=== PATIENT | male | born 1980 | race Caucasian/White ===

== ENCOUNTER 2016-09-28 17:12 | Inpatient (IN) | payer BC ==
[2016-09-28] MEDS ORDERED: HYDROmorphone 2 MG/ML 1 ML SYRINGE IM STA ×2 (17:43→19:16)
--- NOTE | 2016-09-28 17:57 | ED ---
Lower Extremity Injury HPI - General Source: patient Mode of arrival: wheelchair Limitations: no limitations - History of Present Illness Associated Symptoms: ambulatory <Yehuda Escoto - Last Filed: 09/28/16 20:11> <Eliazar Martin - Last Filed: 09/28/16 22:04> - General Chief Complaint: Extremity Injury, Lower Stated Complaint: POSS SCIATIC NERVE, LEFT LEG PAIN Time Seen by Provider: 09/28/16 17:21 - History of Present Illness Initial Comments: Patient is a 36-year-old male, patient of Dr. Medeiros in the outpatient setting presented to the emergency department with complaints of left lower back pain with radiating shooting pain down his left posterior leg to his left calf. Patient currently rates his pain 10 on a 10. No relieving or exacerbating factors. Patient states he was treated for sciatica in early July with pain medication and steroids. Patient states the pain never really went away and over the last 4 days has increased to the point where Motrin and hydrocodone is not working. Patient states he finished his steroids just prior to . Patient denies trauma, fever, weight loss, history of cancer, diabetes or other immunocompromised diseases, IV drug abuse, or recent infection. Patient denies urinary incontinence or fecal incontinence. Patient denies saddle anesthesia. Patient denies any other symptoms. (Yehuda Escoto) - Related Data Home Medications Medication Instructions Recorded Confirmed Omeprazole 1 tab PO DAILY 09/28/16 09/28/16 Previous Rx's Medication Instructions Recorded Docusate [Colace] 100 mg PO BID #60 capsule 09/28/16 Orphenadrine [Norflex] 100 mg PO Q12H #20 tablet.er 09/28/16 Allergies Allergy/AdvReac Type Severity Reaction Status Date / Time codeine Allergy Rash/Hives Verified 09/28/16 17:18 Review of Systems ROS Other: All systems not noted in ROS Statement are negative. <Yehuda Escoto - Last Filed: 09/28/16 20:11> ROS Other: All systems not noted in ROS Statement are negative. <Eliazar Martin - Last Filed: 09/28/16 22:04> ROS Statement: Those systems with pertinent positive or pertinent negative responses have been documented in the HPI. Past Medical History Past Medical History: GERD/Reflux History of Any Multi-Drug Resistant Organisms: None Reported Past Surgical History: No Surgical Hx Reported Past Psychological History: No Psychological Hx Reported Smoking Status: Never smoker Past Alcohol Use History: Occasional Past Drug Use History: None Reported <Yehuda Escoto - Last Filed: 09/28/16 20:11> General Exam Limitations: no limitations General appearance: alert, in distress (Patient tearful) Head exam: Present: atraumatic, normocephalic, normal inspection Neck exam: Present: normal inspection, full ROM. Absent: tenderness Respiratory exam: Present: normal lung sounds bilaterally. Absent: respiratory distress, wheezes, rales, rhonchi, stridor Cardiovascular Exam: Present: regular rate, normal rhythm, normal heart sounds. Absent: systolic murmur, diastolic murmur, rubs, gallop, clicks GI/Abdominal exam: Present: soft, normal bowel sounds. Absent: distended, tenderness Left Hip exam: Present: normal inspection, full ROM. Absent: tenderness, swelling Upper Leg exam: Present: normal inspection, full ROM. Absent: tenderness, swelling Knee exam: Present: normal inspection, full ROM. Absent: tenderness, swelling Lower Leg exam: Present: normal inspection, full ROM. Absent: tenderness, swelling Ankle exam: Present: normal inspection, full ROM. Absent: tenderness, swelling Foot/Toe exam: Present: normal inspection, full ROM. Absent: tenderness, swelling Neurovascular tendon exam: Present: no vascular compromise. Absent: pulse deficit, abnormal cap refill, motor deficit, sensory deficit, tendon deficit, extremity cold to touch, decreased fine/light touch, foot drop, significant pain with passive ROM of distal joint Gait: observed and normal Back exam: Present: full ROM, paraspinal tenderness (Left lumbar sacral region) . Absent: vertebral tenderness, rash noted Expanded Back exam: Absent: saddle anesthesia Back exam: Sciatic Notch Tenderness: Left, Positive Straight Leg Raise: Left, Negative Straight Leg Raising: Right Neurological exam: Present: alert, oriented X3, normal gait, reflexes normal Psychiatric exam: Present: anxious Skin exam: Present: warm, dry, intact, normal color. Absent: rash <Yehuda Escoto - Last Filed: 09/28/16 20:11> Course <Yehuda Escoto - Last Filed: 09/28/16 20:11> <Eliazar Martin - Last Filed: 09/28/16 22:04> Vital Signs 09/28/16 09/28/16 17:19 20:17 Temperature 97.9 F Pulse Rate 87 80 Respiratory 20 18 Rate Blood Pressure 150/86 134/70 O2 Sat by Pulse 100 97 Oximetry - Reevaluation(s) Reevaluation #1: Patient reevaluated after Dilaudid and Norflex. Patient reports no improvement in lumbosacral pain. Patient will be given another dose of Dilaudid 2 mg IM for pain relief. 09/28/16 19:16 (Yehuda Escoto) Reevaluation #2: Patient reevaluated and reports relieving symptoms. Patient is currently rating pain 5 out of 10. Patient able to ambulate in room without difficulty and agreeable to discharge. 09/28/16 20:11 (Yheuda Escoto) Medical Decision Making - Radiology Data Radiology results: report reviewed <Yehuda Escoto - Last Filed: 09/28/16 20:11> <Eliazar Martin - Last Filed: 09/28/16 22:04> - Medical Decision Making Patient is a 36-year-old male presenting with lumbar sacral pain with radiculopathy. No red flags present. Spine x-ray without evidence of acute fractures or dislocation with evidence of degenerative changes and spondylolisthesis. Patient treated with muscle relaxants and opiates with some relief. Patient prescribed muscle relaxant and stool softeners with instructions to follow-up with orthopedic surgeon. Patient agrees with treatment plan. Return parameters and discharge instructions reviewed. (Yehuda Escoto) - Radiology Data Lumbosacral spine x-ray: Redemonstration of dextroconvex scoliotic curvature centered at L2-L3 level. Loss of normal lumbar lordosis on lateral images. No fracture dislocation. Vertebral bodies are within normal limits. There is moderate disc space narrowing and mild spurring at L4-L5 and L5-S1 levels. More prominent versus prior. There are bilateral pars defects L5 level with subtle grade 1 anterolisthesis of L5 on S1 felt stable. The oblique images appear within normal limits. The overlying soft tissue appears unremarkable. Impression: Bilateral pars defects L5 level with subtle spondylolisthesis. Stable. Increasing degenerative change lower lumbar levels is noted. (Escoto, Birgitte D) Disposition Time of Disposition: 18:48 <Yehuda Escoto - Last Filed: 09/28/16 20:11> <Eliazar Martin - Last Filed: 09/28/16 22:04> Clinical Impression: Radicular pain of lumbosacral region Disposition: HOME SELF-CARE Condition: Good Instructions: Sciatica (ED) Additional Instructions: Follow-up with orthopedic surgeon next week. Take muscle relaxers as prescribed. Avoid bedrest. Avoid movements that increase pain such as heavy lifting, twisting, bending, stooping. Take Colace twice daily for constipation and Dulcolax [id number]. Patient return to the emergency department if symptoms do not improve or get worse. Prescriptions: Docusate [Colace] 100 mg PO BID #60 capsule Orphenadrine [Norflex] 100 mg PO Q12H #20 tablet.er Referrals: Daryl Medeiros MD [Primary Care Provider] - 1-2 days Frank Sprague MD [Medical Doctor] - 1-2 days Addendum entered and electronically signed by Yehuda Escoto, [facility] 09/28/16 20:49: As the patient is getting ready to be discharged, he states that his lumbar sacral and left lower leg pain pain has returned in intensity and is currently rating pain 10 out of 10 despite opiates and muscle relaxers. Patient reviewed with Dr. Martin, patient will undergo CT of lumbar spine. Addendum entered and electronically signed by Yehuda Escoto NPC 09/28/16 21:42: CT lumbar spine: CT lumbar spine: Bilateral pars defects at the labeled L6 level with spondylolistesis L6 S1 level noted. Degenerative changes most prominent at the labeled L5 L6 level disc herniation effacing anterolateral thecal sac and central left L6 nerve. No acute fracture or dislocation is evident.
--- NOTE | 2016-09-28 18:09 | XR ---
EXAMINATION TYPE: XR lumbosacral spine min 4V DATE OF EXAM: 09/28/2016 6:02 PM CLINICAL HISTORY: Low back pain into left leg. TECHNIQUE: Frontal, lateral, and oblique images of the lumbar spine are obtained. COMPARISON: Lumbar spine x-ray September 03, 2010. FINDINGS: There are 5 lumbar type vertebral bodies identified. There is redemonstration of dextrocon vex scoliotic curvature centered at L2-L3 level. There is loss of normal lumbar lordosis on lateral i mages. There is no acute fracture or dislocation. Vertebral body heights are within normal limits. T here is moderate disc space narrowing and mild spurring at L4-L5 and L5-S1 levels felt more prominent versus prior. There are bilateral pars defects L5 level with subtle grade 1 anterolisthesis of L5 on S1 felt stable. The oblique images appear within normal limits. The overlying soft tissue appears u nremarkable. IMPRESSION: Bilateral pars defects L5 level with subtle spondylolisthesis felt stable. Increasing deg enerative change lower lumbar levels is noted.
[2016-09-28] MEDS ORDERED: ORPHENADRINE 30 MG/ML 2 ML VIAL IM STA (18:32)
--- NOTE | 2016-09-28 21:39 | CT ---
EXAMINATION TYPE: CT lumbar spine wo con DATE OF EXAM: 09/28/2016 9:26 PM COMPARISON: Lumbar spine x-ray from earlier today. HISTORY: low back pain and left sciatica CT DLP: 1398.50 mGycm Automated exposure control for dose reduction was used. FINDINGS: It is noted nonemergent MRI would be study of choice for above history. There are 6 lumbar type verte bra identified. There are bilateral pars defects at labeled L6 level. There is slight grade 1 anterol isthesis of L6 on S1. No acute fracture or dislocation is present. Vertebral body heights are maintai reji. There is mild to moderate disc space narrowing with vacuum disc phenomenon and posterior disc he rniation at labeled L5-L6 level. Mild multilevel anterior and lateral spurring is present. Axial images at the L3-L4 level show mild broad disc bulge and mild facet degenerative changes with s ome effacement of the anterior and posterior lateral thecal sac on axial image 50. Axial images at the L4-L5 level show mild/moderate broad disc bulge and mild facet degenerative guan es with some effacement anterior thecal sac on axial image 62. Axial images at the L5-L6 level show left paracentral disc protrusion effacing anterolateral thecal s ac and likely central left L6 nerve on axial image 52. There is mild left greater than right neural f oraminal narrowing at this level identified. Axial images at the L6 S1 level show spondylolisthesis. Spinal canal is preserved. Bilateral neural f oramina are felt patent. IMPRESSION: BILATERAL PARS DEFECTS AT THE LABELED L6 LEVEL WITH SPONDYLOLISTHESIS L6 S1 LEVEL NOTED. DEGENERATIVE CHANGE MOST PROMINENT AT THE LABELED L5 L6 LEVEL. DISC HERNIATION EFFACING ANTEROLATERAL THECAL SAC AND CENTRAL LEFT L6 NERVE USING ABOVE COUNTING SYSTEM. NO ACUTE FRACTURE OR DISLOCATION IS EVIDENT.
[2016-09-28] MEDS ORDERED: DEXAMETHASONE SOD PHOSPHATE 10 MG/ML 1 ML VIAL IV STA (21:55)
[2016-09-28] MEDS ORDERED: BISACODYL 10 MG SUPP RECTAL PRN (22:04)
[2016-09-28] MEDS ORDERED: ACETAMINOPHEN TAB 325 MG TAB PO PRN (22:04)
[2016-09-28 22:13] LABS: Basophils % (A) 0 %; CHCM 35.5; Eosinophils # (A) 0.1 k/uL (0-0.7); Eosinophils % (A) 1 %; HCT 42.2 % (39.0-53.0); HDW 2.83; HGB 14.4 gm/dL (13.0-17.5); Luc # (Auto) 0.28; Luc % (Auto) 3; Lymphocytes # (A) 2.2 k/uL (1.0-4.8); Lymphocytes % (A) 25 %; MCH 29.9 pg (25.0-35.0); MCHC 34.1 g/dL (31.0-37.0); MCV 87.7 fL (80.0-100.0); Mean Platelet Volume 7.1; Monocytes # (A) 0.6 k/uL (0-1.0); Monocytes % (A) 7 %; Neutrophils # (A) 5.5 k/uL (1.3-7.7); Neutrophils % (A) 64 %; RBC 4.82 m/uL (4.30-5.90); RDW 12.6 % (11.5-15.5); WBC 8.7 k/uL (3.8-10.6); WBC (Perox) 8.98
--- NOTE | 2016-09-28 22:17 | ED ---
Lower Extremity Injury HPI - General Chief Complaint: Extremity Injury, Lower Stated Complaint: POSS SCIATIC NERVE, LEFT LEG PAIN Time Seen by Provider: 09/28/16 17:21 Source: patient Mode of arrival: wheelchair Limitations: no limitations - History of Present Illness Associated Symptoms: ambulatory - Related Data Home Medications Medication Instructions Recorded Confirmed Omeprazole 1 tab PO DAILY 09/28/16 09/28/16 Allergies Allergy/AdvReac Type Severity Reaction Status Date / Time codeine Allergy Rash/Hives Verified 09/28/16 17:18 Review of Systems ROS Statement: Those systems with pertinent positive or pertinent negative responses have been documented in the HPI. ROS Other: All systems not noted in ROS Statement are negative. Past Medical History Past Medical History: GERD/Reflux History of Any Multi-Drug Resistant Organisms: None Reported Past Surgical History: No Surgical Hx Reported Past Psychological History: No Psychological Hx Reported Smoking Status: Never smoker Past Alcohol Use History: Occasional Past Drug Use History: None Reported General Exam Limitations: no limitations General appearance: alert, in distress (Patient tearful) Course Vital Signs 09/28/16 09/28/16 09/28/16 17:19 20:17 22:24 Temperature 97.9 F 97.8 F Pulse Rate 87 80 89 Respiratory 20 18 20 Rate Blood Pressure 150/86 134/70 140/78 O2 Sat by Pulse 100 97 98 Oximetry Medical Decision Making - Medical Decision Making Patient is a 36-year-old male admitted to observation unit for intractable back pain with radiculopathy. Patient will be admitted to Dr. Ann service, who is covering for Dr. Medeiros with consult to orthopedic service. Patient reviewed with Dr. Martin who agrees to treatment plan. - Lab Data Result diagrams: 09/28/16 22:00 09/28/16 22:00 Lab Results 09/28/16 09/28/16 Range/Units 22:00 22:00 WBC 8.7 (3.8-10.6) k/uL RBC 4.82 (4.30-5.90) m/uL Hgb 14.4 (13.0-17.5) gm/dL Hct 42.2 (39.0-53.0) % MCV 87.7 (80.0-100.0) fL MCH 29.9 (25.0-35.0) pg MCHC 34.1 (31.0-37.0) g/dL RDW 12.6 (11.5-15.5) % Plt Count 225 (150-450) k/uL Neutrophils % 64 % Lymphocytes % 25 % Monocytes % 7 % Eosinophils % 1 % Basophils % 0 % Neutrophils # 5.5 (1.3-7.7) k/uL Lymphocytes # 2.2 (1.0-4.8) k/uL Monocytes # 0.6 (0-1.0) k/uL Eosinophils # 0.1 (0-0.7) k/uL Basophils # 0.0 (0-0.2) k/uL Sodium 143 (137-145) mmol/L Potassium 4.3 (3.5-5.1) mmol/L Chloride 106 (98-107) mmol/L Carbon Dioxide 25 (22-30) mmol/L Anion Gap 12 mmol/L BUN 17 (9-20) mg/dL Creatinine 0.82 (0.66-1.25) mg/dL Est GFR (MDRD) Af Amer >60 (>60 ml/min/1.73 sqM) Est GFR (MDRD) Non-Af >60 (>60 ml/min/1.73 sqM) Glucose 75 (74-99) mg/dL Calcium 9.5 (8.4-10.2) mg/dL Total Bilirubin 0.7 (0.2-1.3) mg/dL AST 36 (17-59) U/L ALT 62 (21-72) U/L Alkaline Phosphatase 57 (38-126) U/L Total Protein 7.1 (6.3-8.2) g/dL Albumin 4.2 (3.5-5.0) g/dL Disposition Clinical Impression: Radicular pain of lumbosacral region, Intractable back pain Disposition: HOME SELF-CARE Condition: Stable Decision Date: 09/28/16 Decision Time: 22:16
[2016-09-28 22:21] LABS: ALT 62 U/L (21-72); AST 36 U/L (17-59); Alkaline Phosphatase 57 U/L (38-126); Anion Gap 12 mmol/L; Blood Urea Nitrogen 17 mg/dL (9-20); Calcium 9.5 mg/dL (8.4-10.2); Carbon Dioxide 25 mmol/L (22-30); Chloride 106 mmol/L (98-107); Glucose 75 mg/dL (74-99); Non-African American GFR(MDRD) >60 (>60 ml/min/1.73 sqM); Potassium 4.3 mmol/L (3.5-5.1); Sodium 143 mmol/L (137-145); Total Bilirubin 0.7 mg/dL (0.2-1.3); Total Protein 7.1 g/dL (6.3-8.2)
[2016-09-28] MEDS: SODIUM CHLORIDE 0.9% 1,000 ML IV SCH (23:00)
[2016-09-28] MEDS: HYDROmorphone 1 MG/ML 1 ML SYRINGE IV PRN (23:24)
[2016-09-28] MEDS: DOCUSATE 100 MG CAP PO SCH (23:24)
[2016-09-28 23:51] VITALS: BMI 30.4
[2016-09-29] MEDS: HYDROmorphone 1 MG/ML 1 ML SYRINGE IV PRN ×7 (03:45→20:24)
[2016-09-29] MEDS: PANTOPRAZOLE 40 MG/10 ML VIAL IV SCH (09:25)
[2016-09-29] MEDS: DOCUSATE 100 MG CAP PO SCH ×2 (09:25→20:30)
--- NOTE | 2016-09-29 11:20 | P.CNOR ---
<Adri Gamez - Last Filed: 09/29/16 11:12> History of Present Illness - HPI Consult date: 09/29/16 Consult reason: low back pain History of present illness: This is a pleasant 36-year-old gentleman who presented to the emergency department yesterday with intractable lower back pain. We were consulted for further evaluation. The patient was seen and evaluated at bedside this morning. He states that he began having back pain in mid July of this year. He does not recall any specific trauma or injury to his back. He states that he had gained approximately 8-10 pounds and had started working out using an elliptical. This seemed to proceed onset of his pain. He was seen by his primary care physician Dr. Medeiros in August who started him on a steroid taper. He states that he did have some improvement with this. However he travels frequently with work and was recently in [place]. He states that the pain significantly worsened and he presented to the emergency department when he return to [facility]. He's been taking Vicodin and Motrin for pain. He denies any numbness or tingling. He does feel that he has some weakness in the left lower extremity. He describes his pain as being located in his left buttocks radiating down the left leg and into his calf. He's not had any changes in his bowel or bladder function. Review of Systems See HPI. He denies fevers, chills, nausea, vomiting, shortness of breath, chest pain Past Medical History Past Medical History: GERD/Reflux History of Any Multi-Drug Resistant Organisms: None Reported Past Surgical History: Orthopedic Surgery Additional Past Surgical History / Comment(s): giulia knees- "muscles and tendons worked on", Collar bone surgery when broken, and varicose vein sx on left leg. Past Psychological History: No Psychological Hx Reported Smoking Status: Former smoker Past Alcohol Use History: Occasional Past Drug Use History: None Reported Additional Drug Use History / Comment(s): pt states 3-5 drinks per week - Past Family History Mother Family Medical History: No Reported History Medications and Allergies Home Medications Medication Instructions Recorded Confirmed Type HYDROcodone/APAP 5-325MG [[place] 1 tab PO Q6HR PRN 09/29/16 09/29/16 History 5-325] Ibuprofen [Motrin] 800 mg PO Q8HR PRN 09/29/16 09/29/16 History Omeprazole 40 mg PO QAM 09/29/16 09/29/16 History Allergies Allergy/AdvReac Type Severity Reaction Status Date / Time codeine AdvReac constipatio Verified 09/29/16 11:41 n Physical Examination On examination the patient does not appear in acute distress. He is alert and oriented 3. He is pleasant and answers questions appropriately. Head normal cephalic atraumatic. Neck is supple. Breathing appears nonlabored. Abdomen is soft. Upon examination of his back there is no obvious deformity or erythema. He has pain to palpation of the midline of his lumbar sacral spine. He is here spinal muscular tenderness most markedly on the left side with spasm. He is able to perform straight leg raise bilaterally. However he has worsening pain with this motion. His thighs and calf are soft and nontender. He has sustained dorsiflexion, plantar flexion extensor hallux longus. Sensation and circulatory status is intact. Results X-rays of the lumbar spine were reviewed Revealing bilateral pars defects at L5 level with spondylolisthesis. Computed tomography scan report is reviewed as well. Revealing bilateral pars defects and spondylolisthesis L6 S1 level. Degenerative change most prominent the labeled L5 L6 level per report. Disc herniation effacing anterolateral thecal sac and central L6 nerve per radiologist report. No acute fracture or dislocation was evident. - Labs Result Diagrams: 09/28/16 22:00 09/28/16 22:00 Assessment and Plan (1) Intractable back pain Status: Acute (2) Radicular pain of lumbosacral region Status: Acute (3) Pars defect with spondylolisthesis Status: Acute Plan: Discussed the clinical and imaging with the patient at bedside. I also reviewed the patient's findings with Dr. Galvez. We will start the patient on a course of IV steroids. Continue with pain control. MRI will be obtained for further evaluation. Further recommendations will be made depending upon the findings of the MRI. <Panda Galvez - Last Filed: 10/02/16 10:03> History of Present Illness - [facility] Consult date: 10/02/16 (Patient was seen and examined on September and today. He was found have a large disc herniation which correlated well with his lower extremity symptoms and weakness in his lower extremity. I reviewed the MRI and the date was done and discuss his treatment options with him. We discussed possibility of continued conservative management with possibly surgical intervention. The patient is not having improvement in his symptoms and with his weakness at his lower extremity I think he is a good candidate for decompression and discectomy. I discussed risks, occasions alternatives and benefits of the procedure at length. I answered his questions best my ability G understand and he is interested in pursuing surgical intervention as soon as possible.) Physical Examination Osteopathic Statement: *. No significant issues noted on an osteopathic structural exam other than those noted in the History and Physical/Consult. Results - Labs Labs: Coagulation 10/01/16 Range/Units 13:40 INR 1.1 (<1.1) Result Diagrams: 09/28/16 22:00 09/28/16 22:00
[2016-09-29] MEDS ORDERED: HYDROcodone/APAP 5-325MG 1 EACH TAB PO PRN (11:21)
[2016-09-29] MEDS: HYDROcodone/APAP 5-325MG 1 EACH TAB PO PRN (11:40)
[2016-09-29] MEDS ORDERED: POLYETHYLENE GLYCOL 3350 17 GM POWD.PACK PO PRN (14:47)
[2016-09-29] MEDS: KETOROLAC 30 MG/ML 1 ML VIAL IVP PRN ×2 (14:52→19:54)
[2016-09-29] MEDS: methylPREDNISolone SOD SUCCI 125 MG/2 ML VIAL IV SCH ×2 (14:52→23:26)
[2016-09-29] MEDS: CYCLOBENZAPRINE 5 MG TAB PO PRN ×2 (14:52→23:23)
[2016-09-29] MEDS: FAMOTIDINE 20 MG TAB PO SCH (20:30)
[2016-09-29] MEDS: SODIUM CHLORIDE 0.9% 1,000 ML IV SCH (23:24)
[2016-09-30] MEDS: HYDROmorphone 1 MG/ML 1 ML SYRINGE IV PRN ×10 (00:40→23:31)
[2016-09-30] MEDS: KETOROLAC 30 MG/ML 1 ML VIAL IVP PRN ×4 (02:25→22:36)
[2016-09-30] MEDS: FAMOTIDINE 20 MG TAB PO SCH (08:00)
[2016-09-30] MEDS: DOCUSATE 100 MG CAP PO SCH ×2 (08:00→20:06)
[2016-09-30] MEDS: PANTOPRAZOLE 40 MG/10 ML VIAL IV SCH (08:00)
--- NOTE | 2016-09-30 08:30 | P.PN ---
Progress Note - Text Patient is a very pleasant 36-year-old male who is seen exam following evaluation for his significant low back pain and left lower extremity radiculopathy. Since being seen and examined by Cassidy Gamez PA-C yesterday, he states his symptoms have been better controlled since being started on Solu- Medrol, Flexeril, Highland, and Dilaudid. He continues to have significant low back pain with pain radiating down the posterior left thigh and into the posterior left calf stopping at the ankle. Due to his significant pain he has been having difficulty with ambulating on the left lower extremity has been ambulating with a limp. MRI of the lumbar spine was ordered yesterday. We are currently waiting for his MRI to be performed today. He has been eating without difficulty. Patient has been discussed in detail with his who is present the bedside. We discussed we will wait for his MRI to be performed and will follow up with a plan of care depending on his MRI results. Physical exam: Patient is awake, alert, and oriented 3 Vital signs stable Good chest excursion with deep inspiration and expiration Abdomen soft nontender Examination of lumbar spine reveals skin is intact with no abrasions, lacerations, or bruises; no erythema, purulence or signs of infection Dorsiflexion, plantarflexion, and extensor hallucis longus positive sustained bilaterally Lower extremity strength 5/5 on the right Lower extremity strength is positive sustained throughout range of motion but shows some weakness with breakaway strength including dorsiflexion, plantarflexion, and extensor hallucis longus Positive Lasegue's test on the left No signs or symptoms of DVT; no calf pain Pneumatic cuffs intact bilateral lower extremities No pain with internal and external rotation of the hips bilaterally Neurovascularly intact Pertinent studies: CT of the lumbar spine taken on 09/28/2016: Evidence of 6 lumbar type vertebrae identified; bilateral pars defect labeled at L6; L6-S1 slight grade 1 spondylolisthesis; L5-6 degenerative disc disease, vacuum disc phenomenon, and left paracentral disc herniation effacing the anterior lateral thecal sac and likely left L6 nerve; MRI would be the study of choice given the patient's history Assessment: Low back pain Left lower extremity radiculopathy L5-6 left paracentral disc herniation and degenerative disc disease L6-S1 spondylolisthesis L6 bilateral pars defects Plan: 1. Patient is currently planning to have an MRI of the lumbar spine performed today. Orders have been sent down to the MRI department. We are currently waiting for this MRI to be scheduled. Once this MRI has been completed and is available for viewing, we will review this MRI and determine a plan of care at that time. 2. Continue pain control with Solu-Medrol, Flexeril, [place], and Dilaudid 3. Medicine to continue seeing the patient 4. We will continue to follow patient closely 5. I will discuss this patient in detail with Dr. Peterson Galvez
[2016-09-30] MEDS: CYCLOBENZAPRINE 5 MG TAB PO PRN ×2 (08:48→17:30)
[2016-09-30] MEDS: methylPREDNISolone SOD SUCCI 125 MG/2 ML VIAL IV SCH (08:48)
--- NOTE | 2016-09-30 10:48 | HP ---
DATE OF ADMISSION: 09/28/2016 The patient is a 36 -year-old came in with complaints of chronic low back pain has been going on for about 7 to 10 days and has been progressively getting worse and the patient back pain is sharp in nature radiating on the posterior aspect of left leg radiating up to the left calf area which is like a sharp like sensation. The patient denied any bowel or bladder incontinence. The patient feels weak because of the cane, the patient denies any numbness, the patient denied any fever or chills. The patient denied any other focal symptoms. Patient's pain is about 10/10 in severity. The patient is not well controlled even with Dilaudid. The patient gained 8 to 10 pounds, has been working out lately he says. CT of the lumbar spine was obtained which showed significant lumbar spine disease disc prolapse at the L6 level impinging on the ( ) the thecal sac and the patient's straight leg raising test is positive just with 20 degrees in the left leg. REVIEW OF SYSTEMS: CONSTITUTIONAL: No fever, no malaise, no fatigue. HEENT: No recent visual problems or hearing problems. Denied any sore throat. CARDIOVASCULAR: No chest pain, orthopnea, PND, no palpitations, no syncope. PULMONARY: No shortness of breath, no cough, no hemoptysis. GASTROINTESTINAL: No diarrhea, no nausea, no vomiting, no abdominal pain. Normoactive bowel sounds. NEUROLOGICAL: No headaches, no weakness, no numbness. HEMATOLOGICAL: Denies any bleeding or petechiae. GENITOURINARY: Denies any burning micturition, frequency, or urgency. MUSCULOSKELETAL/RHEUMATOLOGICAL: as described in HPI. ENDOCRINE: Denies any polyuria or polydipsia. The rest of the 14 point review of systems is negative. PAST MEDICAL HISTORY: Significant for gastroesophageal reflux disease. SOCIAL HISTORY: Quit smoking a few months ago, denied any alcohol abuse or any drug abuse. FAMILY HISTORY: Denied any family history of ( ) in the family. Home medications include: 1. Omeprazole. 2. Hydrocodone. 3. Acetaminophen. 4. Motrin. ALLERGIES: ALLERGIC TO CODEINE. PHYSICAL EXAMINATION: VITAL SIGNS: Temperature 97.8, pulse of around 92, blood pressure is 120/85, saturating at 98% on room air. GENERAL : Alert and oriented x3, overweight gentleman. HEENT: Pupils are round and equally reacting to light. EOMI. No scleral icterus. No conjunctival pallor. Normocephalic, atraumatic. No pharyngeal erythema. No thyromegaly. CARDIOVASCULAR: S1 and S2 present. No murmurs, rubs, or gallops. PULMONARY: Chest is clear to auscultation, no wheezing or crackles. ABDOMEN: Soft, nontender, nondistended, normoactive bowel sounds. No palpable organomegaly. MUSCULOSKELETAL: Straight leg raising test as mentioned earlier, and patient does have tenderness in the lower lumbar paraspinal area. EXTREMITIES: No cyanosis, clubbing, or pedal edema. NEUROLOGICAL: Gross neurological examination did not reveal any focal deficits. SKIN: No rashes. LABORATORY DATA: CBC, CMP, essentially within normal limits. ( ) as mentioned above. ASSESSMENT AND PLAN: 1. Intractable back pain. Patient has ( ) pain management, the patient is on Dilaudid, I will start him on Ketorolac and [place]. Orthopedics ( ) consulted. Patient does have radicular pain with disc herniation at L6 level extending onto the thecal sac without any neurological deficits except for pain. 2. Obesity. Counseling was provided. 3. Gastroesophageal reflux disease, we will go ahead and continue his ( ) we will start him on proton pump inhibitors since patient is getting an NSAID and prednisone for GI prophylaxis.
[2016-09-30] MEDS: HYDROcodone/APAP 5-325MG 1 EACH TAB PO PRN ×2 (12:34→19:10)
--- NOTE | 2016-09-30 15:25 | MR ---
EXAMINATION TYPE: MR lumbar spine wo con DATE OF EXAM: 09/30/2016 2:54 PM COMPARISON: CT lumbar spine September 28, 2016. HISTORY: LBP, LLE radic TECHNIQUE: Multiplanar, multisequence imaging of the lumbar spine is performed without IV contrast. FINDINGS: Sagittal images of the lumbar spine show vertebral body heights to appear satisfactory. Devin e counting system as recent CT will be utilized. There is grade 1 anterolisthesis of L6 on S1 redemo nstrated. Multilevel disc desiccation is seen. There is multilevel mild to moderate disc space narrow ing in the mid to lower cervical spine. Posterior disc herniations are redemonstrated at L5 L6 and L6 S1 levels. The conus medullaris is normal in position and signal ending at L1-L2 disc space level gi leanna above counting system. Small hemangioma L2 vertebral body level and posterior anterior S1 vertebr al body levels is noted. Mild multilevel anterior spurring is redemonstrated. Axial images show labeled the L1-L2 level to appear within normal limits. Axial images at L2-L3 level show mild broad disc bulge minimally effacing anterior thecal sac on axia l image 29, bilateral neural foramina remain patent. Axial images at the L3-L4 level show mild broad disc bulge mildly effacing anterior thecal sac and mi ld facet degenerative changes bilaterally. Bilateral neural foramina are patent. Axial images at L4-L5 level show mild broad disc bulge and mild facet degenerative changes bilaterall y. There is mild effacement the anterior thecal sac. There is mild to minimal bilateral anterior infe rior neural foraminal narrowing at this level. Axial images at L5-L6 level show left paracentral spur disc complex effacing anterolateral thecal sac and the central left nerve at this level on axial image [address] image 72. Effacement o f lateral recess is seen. There is mild bilateral anterior inferior neural foraminal narrowing. Axial images at the L6-S1 level show moderate facet degenerative changes bilaterally. Spondylolisthes is is present. Spinal canal is preserved. Mild bilateral neural foraminal narrowing is felt present. IMPRESSION: MRI findings correlate with recent CT. There is eccentric disc herniation left L5 L6 leve l effacing the central nerve at this level. Other multilevel degenerative changes are seen as detaile d above.
[2016-09-30] MEDS: SODIUM CHLORIDE 0.9% 1,000 ML IV SCH (20:05)
--- NOTE | 2016-09-30 21:07 | P.PN ---
Subjective Date of service 09/30/2016 Progress note being dictated for Dr. Diaz. Interval history: This is a 36-year-old gentleman admitted with intractable back pain and multiple other medical issues. Evaluated by orthopedics with recommendations noted. Complains of left lower back pain radiating through hip down left leg. At rest radiating pain 7 out of 10, with minimal exertion to bathroom radiating pain 10+. There went MRI, correlating with recent CT 8 reporting eccentric disc herniation left L5 L6 level with other multilevel degenerative changes. Positive diet intake, no nausea or vomiting. Denies chest pain, palpitations or increasing shortness of breath. Objective - Vital Signs Vital signs: Vital Signs Temp 97.5 F L 09/30/16 14:03 Pulse 78 09/30/16 16:00 Resp 16 09/30/16 14:03 BP 128/63 09/30/16 14:03 Pulse Ox 94 L 09/30/16 14:03 Intake & Output 09/30/16 09/30/16 10/01/16 06:59 18:59 06:59 Intake Total 720 880 Balance 720 880 Intake: IV 220 160 Sodium Chloride 0.9% 1, 220 160 000 ml @ 20 mls/hr IV . Q24H KEVIN Rx#:[id number] Oral 500 720 Other: Voiding Method Toilet Toilet # Voids 1 3 - Exam PHYSICAL EXAM: VITAL SIGNS: As above GENERAL: [Sitting up in bed, no acute distress] HEENT: [Pupils equal conjunctiva normal.] NECK: [Supple, no JVD] RESPIRATORY EFFORT:[Normal] LUNGS: [Essentially clear, bilateral bases diminished] CARDIOVASCULAR[regular S1 and S2, no murmurs, rubs or gallops, no edema] GI: [Abdomen soft, nontender, positive bowel sounds.] PSYCH: [Alert and oriented -3, mood and affect normal.] NEURO: no focal deficits, positive left straight leg raising test-unchanged - Labs CBC & Chem 7: 09/28/16 22:00 09/28/16 22:00 Assessment and Plan Plan: 1. Intractable back pain with radicular pain, disc herniation at L5,L6 level effacing central nerve of this level,without any neural neurological deficits except for pain. 2. [[place], BMI 30.4]. 3. [Gastroesophageal reflux disease Disease]. Plan: Continue on current medication regime , Toradol, Flexeril, [place], Dilaudid monitoring and symptomatic treatment. MRI completed with further recommendations from orthopedics pending. Pain management as per orthopedics. Further recommendations to follow. The impression and plan of care has been dictated as directed. : I performed a H&P examination of this patient and discussed the same with the dictator. I agree with the dictator's note. Any additional findings/opinions/ etc. will be noted.
[2016-10-01] MEDS: CYCLOBENZAPRINE 5 MG TAB PO PRN ×3 (01:30→17:49)
[2016-10-01] MEDS: HYDROmorphone 1 MG/ML 1 ML SYRINGE IV PRN ×11 (01:41→21:54)
[2016-10-01] MEDS: HYDROcodone/APAP 5-325MG 1 EACH TAB PO PRN ×2 (02:49→07:59)
[2016-10-01] MEDS: KETOROLAC 30 MG/ML 1 ML VIAL IVP PRN ×4 (04:54→22:32)
[2016-10-01] MEDS: LACTULOSE 20 GM/30 ML CUP PO SCH ×2 (07:45→21:58)
[2016-10-01] MEDS: PANTOPRAZOLE 40 MG TABLET PO SCH (07:45)
[2016-10-01] MEDS: DOCUSATE 100 MG CAP PO SCH ×2 (07:45→21:58)
--- NOTE | 2016-10-01 09:10 | P.PN ---
Progress Note - Text Patient is a very pleasant 36-year-old male who is seen and examed following evaluation for his significant low back pain and left lower extremity radiculopathy. Since being seen and examined yesterday, he has not had significant change in his symptoms. He is at an MRI of his lumbar spine. These results were discussed in detail. He continues to receive Flexeril, [place] , and Dilaudid. He continues to have significant low back pain with pain radiating down the posterior left thigh and into the posterior left calf stopping at the ankle. Due to his significant pain he has been having difficulty with ambulating on the left lower extremity has been ambulating with a limp. He is experiencing weakness in the left lower extremity as well. He continues wait for consultation by pain management. He has been eating and voiding without difficulty. At this time the patient states he had his has not decided which plan of care they would like to proceed forward with. Physical exam: Patient is awake, alert, and oriented 3 Vital signs stable Good chest excursion with deep inspiration and expiration Abdomen soft nontender Examination of lumbar spine reveals skin is intact with no abrasions, lacerations, or bruises; no erythema, purulence or signs of infection Dorsiflexion, plantarflexion, and extensor hallucis longus positive sustained bilaterally Lower extremity strength 5/5 on the right Lower extremity strength is positive sustained throughout range of motion but shows some weakness with breakaway strength including dorsiflexion, plantarflexion, and extensor hallucis longus Positive Lasegue's test on the left No signs or symptoms of DVT; no calf pain Pneumatic cuffs intact bilateral lower extremities No pain with internal and external rotation of the hips bilaterally Neurovascularly intact Pertinent studies: MRI lumbar spine taken on 09/30/2016: L2-3 broad-based disc bulge; L3-4 broad- based disc bulge and mild facet degenerative changes; L4-5 broad-based disc bulge and mild facet degenerative changes bilaterally; L5-6 left paracentral spur disc complex the face in the anterolateral thecal sac and central left nerve; L6-S1 grade 1 spondylolisthesis, moderate facet degenerative changes bilaterally; there are [address] of the lumbar spine taken on 09/28/2016: Evidence of 6 lumbar type vertebrae identified; bilateral pars defect labeled at L6; L6-S1 slight grade 1 spondylolisthesis; L5-6 degenerative disc disease, vacuum disc phenomenon, and left paracentral disc herniation effacing the anterior lateral thecal sac and likely left L6 nerve; MRI would be the study of choice given the patient's history Assessment: Low back pain Left lower extremity radiculopathy L5-6 left paracentral disc herniation and degenerative disc disease L6-S1 spondylolisthesis L6 bilateral pars defects Plan: 1. Patient had an MRI of the lumbar spine performed yesterday. He has a large disc herniation on the left at L5-6. He is currently waiting for further evaluation by pain management and to discuss the possibility of epidural injections. We also discussed the possibility of proceeding forward with surgical intervention tomorrow. The current proposed surgical intervention would be a laminectomy and decompression with discectomy at L5-6. Patient would like to discuss further treatment options in greater detail with his to determine what plan of care they would like to proceed forward with. We discussed his nurse may contact us after they have determined the most appropriate plan of care for him and then we may continue with conservative treatment with pain management or we can proceed for surgical intervention for tomorrow, 10/02/2016. . Continue pain control with Solu-Medrol, Flexeril, [place], and Dilaudid 3. Medicine to continue seeing the patient; will plan for medicine to provide surgical clearance in anticipation if we schedule surgery for tomorrow, 2016 4. We will continue to follow patient closely 5. I have discussed this patient in detail with Dr. Peterson Galvez and he agrees with this plan
[2016-10-01] MEDS: HYDROcodone/APAP 7.5-325MG 1 EACH TAB PO PRN ×2 (13:53→20:04)
--- NOTE | 2016-10-01 14:27 | XR ---
EXAMINATION TYPE: XR chest 1V portable DATE OF EXAM: 10/01/2016 2:11 PM CLINICAL HISTORY: Presurgical study. TECHNIQUE: Single AP portable upright view of the chest is obtained. COMPARISON: Chest x-ray from July 04, 2011. FINDINGS: Diminished inspiration is seen on current study with bibasilar linear atelectasis. Elevate d left hemidiaphragm is noted. No large pleural effusion or pneumothorax is seen. Cardiac silhouette size is within normal limits. Osseous structures are intact. IMPRESSION: Poor inspiration with bibasilar linear atelectasis.
[2016-10-01 14:47] LABS: INR 1.1 (<1.1); Prothrombin Time 10.7 sec (9.0-12.0)
[2016-10-01] MEDS: SODIUM CHLORIDE 0.9% 1,000 ML IV SCH (21:58)
[2016-10-01 22:47] LABS: Appearance,Urine Clear (Clear); Bilirubin,Urine Negative (Negative); Glucose,Urine (UA) Negative (Negative); Ketones,Urine Negative (Negative); Leukocyte Esterase,Urine Negative (Negative); Nitrite,Urine Negative (Negative); Protein,Urine Negative (Negative); Specific Gravity,Urine 1.012 (1.001-1.035); UA Billing (MACRO vs. MICRO) CHEM; Urobilinogen,Urine <2.0 mg/dL (<2.0)
[2016-10-02] MEDS: HYDROmorphone 1 MG/ML 1 ML SYRINGE IV PRN ×8 (00:08→19:37)
[2016-10-02] MEDS: HYDROcodone/APAP 7.5-325MG 1 EACH TAB PO PRN ×3 (00:08→21:28)
[2016-10-02] MEDS: CYCLOBENZAPRINE 5 MG TAB PO PRN (02:06)
[2016-10-02] MEDS: KETOROLAC 30 MG/ML 1 ML VIAL IVP PRN ×3 (04:27→15:05)
--- NOTE | 2016-10-02 08:32 | P.CON ---
Consult Note - . Consult date: 10/02/16 Assessment/Plan:: Pain physician not informed about consult on patient until morning of 2016. Noted that patient is on OR schedule today for surgery with Dr. Galvez. Please call back with any further questions.
[2016-10-02] MEDS: PANTOPRAZOLE 40 MG TABLET PO SCH (08:34)
[2016-10-02] MEDS: DOCUSATE 100 MG CAP PO SCH ×2 (08:35→20:33)
[2016-10-02] MEDS: LACTULOSE 20 GM/30 ML CUP PO SCH ×2 (08:35→20:33)
[2016-10-02] MEDS ORDERED: IV FLUID CONTINUATION 1,000 ML IV ONE (12:04)
--- NOTE | 2016-10-02 12:10 | P.PN ---
Progress Note - Text Patient is seen and examined today at bedside. He continues to have severe pain in his left lower extremity at the back of his leg he continues have weakness at his left leg. He is not having problems with urination or bowel function. He denies any fevers chills. He does not feel he's had any relief with his pain medicine or IV steroid. On exam he has weakness with plantar flexion and about 3 out of 5. He is unable to do single leg at heel raise on the left. His back is significant paravertebral spasm but no midline pain. His thigh and calf are soft nontender. His abdomen soft. Assessment and plan Herniated nucleus pulposis L5-S1 with extruded disc and severe left foraminal stenosis Left lower extremity radiculopathy weakness over S1 distribution Stable listhesis L4 5 L5-S1 The patient has a new extruded disc herniation L5-S1 which is the primary cause of his severe symptoms at his left lower extremity along with weakness in his left leg. He is not having any benefit despite aggressive conservative treatment and he continues have severe debility with weakness. Given his issues are think that he is a candidate for decompression. We discussed the possibly of decompression and fusion with him at length. I feel that he is appropriate candidate for decompression alone at this point to see if we can alleviate a significant portion of his lower extremity symptoms and given the best chance of regaining strength his left lower extremity. He understands that he does have listhesis which may give progressive degenerative changes and issues in the future but is extubated undergoing decompression alone at this point. I think is reasonable. I answered his questions as well as questions best my ability and they we'll proceed with surgery for decompression at L5-S1 with discectomy today.
[2016-10-02] MEDS ORDERED: BACITRACIN 50,000 UNIT, POLYMYXIN B 500,000 UNIT in SODIUM CHLORIDE 0.9% IRRIGATIO 1,00... IRRIGATION ONE (12:20)
[2016-10-02] MEDS ORDERED: ONDANSETRON 4 MG/2 ML VIAL IVP ONE (12:23)
[2016-10-02] MEDS ORDERED: ceFAZolin 3 GM in SODIUM CHLORIDE 0.9% 100 ML IVPB ONE (12:30)
[2016-10-02] MEDS ORDERED: LIDOCAINE 1% INJ 10MG/ML (20 ML MDV) ONE (12:45)
[2016-10-02] MEDS ORDERED: ROCURONIUM BROMIDE 10 MG/ML 10 ML VIAL IV ONE (12:45)
[2016-10-02] MEDS ORDERED: fentaNYL (PF) 50 MCG/ML 2 ML AMP ONE (12:45)
[2016-10-02] MEDS ORDERED: HYDROmorphone (PF) 1 MG/ML ONE (12:45)
[2016-10-02] MEDS ORDERED: ONDANSETRON 4 MG/2 ML VIAL ONE (12:45)
[2016-10-02] MEDS ORDERED: SUCCINYLCHOLINE CHLORIDE VIAL 200 MG/10 ML VIAL IV ONE (12:45)
[2016-10-02] MEDS ORDERED: MIDAZOLAM 2 MG/2 ML VIAL ONE (12:45)
[2016-10-02] MEDS ORDERED: PROPOFOL 10 MG/ML 20 ML VIAL IV ONE (12:45)
[2016-10-02] MEDS ORDERED: DEXAMETHASONE SOD PHOS (MDV) 100 MG/10 ML VIAL ONE (12:45)
[2016-10-02] MEDS ORDERED: LIDOCAINE 0.5%-EPI 1:200,000 50 ML VIAL SQ ONE (13:14)
[2016-10-02] MEDS ORDERED: methylPREDNISolone ACETATE 80 MG/ML 1 ML VIAL MISCELLANE ONE (13:18)
[2016-10-02] MEDS ORDERED: BUPIVACAINE (PF) 0.25% 30 ML VIAL SQ ONE (13:18)
[2016-10-02] MEDS ORDERED: THROMBIN (BOVINE) 5,000 UNIT VIAL TOPICAL ONE (13:38)
[2016-10-02] MEDS ORDERED: methylPREDNISolone ACETATE 40 MG/ML 1 ML VIAL MISCELLANE ONE (13:38)
[2016-10-02] MEDS ORDERED: GELATIN SPONGE,ABSORB (LARGE) 1 EACH SPONGE TOPICAL ONE ×2 (13:38)
--- NOTE | 2016-10-02 14:01 | FL ---
EXAMINATION TYPE: FL guidance operating room DATE OF EXAM: 10/02/2016 1:32 PM COMPARISON: NONE HISTORY: Needle placement Fluoroscopy support supplied to the referring clinician. See dictated report from orthopedic surgery , 3 seconds fluoroscopy time supplied
--- NOTE | 2016-10-02 14:02 | XR ---
Limited lumbar spine HISTORY: Needle placement intraoperative C-arm image documents the procedure
[2016-10-02] MEDS ORDERED: LACTATED RINGERS 1,000 ML IV ONE (14:18)
[2016-10-02] MEDS ORDERED: DIAZEPAM 5 MG TAB PO PRN (14:28)
[2016-10-02] MEDS ORDERED: BENZOCAINE/MENTHOL LOZENG 1 EACH LOZENGE MUCOUS MEM PRN (14:28)
[2016-10-02] MEDS ORDERED: HYDROmorphone 1 MG/ML 1 ML SYRINGE IVP PRN (14:28)
[2016-10-02] MEDS ORDERED: ONDANSETRON 4 MG/2 ML VIAL IVP PRN (14:29)
[2016-10-02] MEDS ORDERED: IBUPROFEN 800 MG TAB PO PRN (14:32)
--- NOTE | 2016-10-02 14:40 | P.OP ---
Date of Procedure: 10/02/16 Preoperative Diagnosis: Herniated Nucleus pulposis L5 6 Left lower extremity radiculopathy Left lower extremity weakness Spondylolisthesis L 56 and L6 S1 Postoperative Diagnosis: Same with evidence of a hard disc osteophyte formation at L5 6 Anesthesia: GETA Pathology: none sent Condition: stable Disposition: PACU Description of Procedure: BRIEF OPERATIVE NOTE Preoperative Diagnosis: Herniated nucleus pulposis L5 6, left lower extremity radiculopathy and weakness, spondylolisthesis L5 6 L6 and S1 Postoperative Diagnosis: Same Procedure: Laminectomy and decompression L5 6 Discectomy for decompression L5 6 Use of C-arm fluoroscopic guidance Surgeon: Dr. Galvez [employer] Dispatcher: Bautista Mendez is present throughout the entire the case persistence during positioning, dissection, exposure, visualization, and all crucial elements of the case as well as closure. Anesthesia: General anesthesia Estimated blood loss: Approximately 200 mL Complications: None apparent Components implanted: None Disposition: To recovery room in good stable condition. OPERATIVE INDICATIONS The patient has been having issues in their lower back and lower extremities. He had acute increase in his pain over the past few weeks and was actually hospitalized due to his severe debility with his back and leg. He had acute weakness at his left lower extremity and imaging showed 6 lumbar vertebrae with evidence of a herniated disc at L5 6 which correlated well with his symptoms. He also has evidence of spondylolisthesis at L56 and L6 S1 with disc degeneration. The patient has been through conservative treatment. We discussed the possibility of decompression alone with pulsatile the possibility of fusion at his lumbar spine. We discussed these matters at length especially in light of his spondylolisthesis. Given his young age and his predominant lower extremity symptoms with his acute new lower extremity weakness I felt that his best surgical option would be to pursue laminectomy with decompression and discectomy without fusion at this point. We discussed various treatment options including surgery, and the patient wishes to proceed with surgery We discussed the risk, patient's alternatives and benefits of surgery including but not limited to, risk of bleeding risk of infection, risk of need for further surgery, risk of decreased, loss of motion, loss of function, nerve damage, paralysis, heart attack, blindness and . OPERATIVE SUMMARY After discussing all the risks, patient alternatives and benefits at length, the patient elected to proceed with surgical intervention, signed informed consent, and presented for their procedure. The patient was seen and examined in the preoperative holding area and the surgical site was marked. The patient was given antibiotics and brought to the operating room. The patient was sedated and intubated by anesthesia in standard fashion. The patient was positioned on to the operating room table in a prone position on the appropriate frame which was well-padded and well molded. We were careful to pad any bony prominences and pressure points. We were careful to maintain the patient's cervical spine and good neutral alignment and position throughout. The patient was prepped and draped in a normal standard fashion. An appropriate timeout and keystone protocol performed. We were able to proceed with the surgery. Fluoroscopy was utilized to establish the appropriate level. Of note the patient does have 6 lumbar vertebrae and we were working at the level of L5 6. An incision was made at the midline longitudinally over the appropriate levels at L5 6. Dissection was taken down subcutaneously to the level of the fascia which was split midline. Dissection was taken over the lamina. Intraoperative fluoroscopy was taken which showed a marker at the appropriate level of L5 6. With the appropriate level positively confirmed, we were able to proceed with laminectomy. The wound was copiously irrigated and suctioned dry as had been done periodically throughout the case. I performed a laminectomy with a combination of curettes and a high-speed bur and [place] rongeurs. A small medial facetectomy was performed again further access. A partial foraminotomy was also performed. the patient had significant foraminal stenosis and significant osteophytes around his The local wound area was infiltrated with local anesthetic. Portions of the ligamentum flavum were taken down to expose the dura and traversing nerve root. I was able to mobilize the traversing nerve root and gain access to the disc space. Note was made of obvious compression from the disc. Protecting the soft tissue structures, a small annulotomy was established. There were significant posterior osteophytes as well contributing to the stenosis and distortion of the nerve root. I was able to perform discectomy and remove any extruded disc fragments and any loose fragments from within the disc itself. There is some significant disc desiccation noted. I tried to preserve the disc annulus that appeared stable. I had to take down piecemeal the osteophytes as best as possible to further decompression. There were no further extruded fragments noted. There is no evidence of dural tear or leak. Good hemostasis maintained. The wound was copiously irrigated and suctioned dry. Good decompression and discectomy was noted. We were able to proceed with closure. The fascia was closed for a watertight closure. The subcuticular tissue was closed with absorbable suture. The wound was cleaned and dried and dressed with the appropriate dressing. The drapes were broken down. The patient was gently rolled back onto their hospital bed being careful to maintain their cervical spine and good neutral alignment and position. They were woken up by anesthesia, extubated, and brought to the recovery room in good stable condition. The patient will be admitted to the hospital for observation and for appropriate postoperative care, medical management and monitoring. We will continue to follow them closely about the postoperative course.
[2016-10-02] MEDS: HYDROmorphone 1 MG/ML 1 ML SYRINGE IVP ONE ×2 (14:50→14:55)
[2016-10-02 18:21] VITALS: RESP 16
[2016-10-02] MEDS: ceFAZolin 3 GM in SODIUM CHLORIDE 0.9% 100 ML IVPB SCH (21:32)
[2016-10-03] MEDS: KETOROLAC 30 MG/ML 1 ML VIAL IVP PRN (00:57)
[2016-10-03] MEDS: HYDROmorphone 1 MG/ML 1 ML SYRINGE IV PRN (00:58)
[2016-10-03] MEDS: SODIUM CHLORIDE 0.9% 1,000 ML IV SCH ×2 (05:25→08:29)
[2016-10-03] MEDS: HYDROcodone/APAP 7.5-325MG 1 EACH TAB PO PRN ×2 (05:26→11:27)
[2016-10-03] MEDS: ceFAZolin 3 GM in SODIUM CHLORIDE 0.9% 100 ML IVPB SCH (05:44)
--- NOTE | 2016-10-03 07:54 | P.DS ---
Providers Date of admission: 10/01/16 12:58 Attending physician: Daryl Medeiros Primary care physician: Daryl Medeiros [facility] Course: The patient presented on the day of admission as per his operative note. He feels his neck and his arms are doing well since his surgery. He is not having pain in his neck and his able to swallow appropriately. Physical Exam The incision site is clean dry and intact. There is no erythema no drainage. There is no purulence no evidence of infection. There is no significant swelling. His neck is soft and supple. There is no active drainage. Abdomen soft and nontender. Chest has good excursion with deep inspiration and expiration. The patient has active and passive range of motion intact at the upper and lower extremities. There is no acute change in neurologic status. He is able to move his upper extremities hands wrist and fingers well. Hospital Course Postoperative day 0 status post anterior cervical discectomy and fusion at C67 for his herniated nucleus pulposis with cervical stenosis and degenerative disc disease with upper extremity radiculopathy. The patient has been making good progress postoperatively. He feels his arms have had improvement already with his surgery. They have completed the prophylactic antibiotics without any signs or symptoms of infection. The patient has been able to advance their diet, and is tolerating diet adequately. The pain was initially controlled with IV medications and is now controlled appropriately with oral medications. The patient has been able to increase their mobilization. The patient has progressed appropriately. I think they are in good stable condition for discharge today. They will be sent home with appropriate prescriptions. I answered their questions to the best of my ability in a language that they can understand and they are agreeable with the plan. They will follow up as directed in approximately 2 weeks or sooner if he is having any problems. Patient Condition at Discharge: Stable Plan - Discharge Summary Discharge Medication List HYDROcodone/APAP 5-325MG [[place] 5-325] 1 tab PO Q6HR PRN 09/29/16 [History] Ibuprofen [Motrin] 800 mg PO Q8HR PRN 09/29/16 [History] Omeprazole 40 mg PO QAM 09/29/16 [History] Follow up Appointment(s)/Referral(s): Daryl Medeiros MD [Primary Care Provider] - 1-2 days
[2016-10-03] MEDS: DOCUSATE 100 MG CAP PO SCH (08:27)
[2016-10-03] MEDS: PANTOPRAZOLE 40 MG TABLET PO SCH (08:27)
[2016-10-03] MEDS: LACTULOSE 20 GM/30 ML CUP PO SCH (08:27)
--- NOTE | 2016-10-03 08:37 | P.DS ---
Providers Date of admission: 10/01/16 12:58 Attending physician: Daryl Medeiros Primary care physician: Daryl [facility] Course: The patient presented on the day of admission in regards to his intractable back pain and lower extremity pain with weakness. He was found have significant changes at his lumbar spine including a large disc herniation at L5 6 for which he eventually underwent a laminectomy decompression and discectomy as per his operative note. This was performed yesterday and he is postoperative day #1. He feels that his leg has had significant improvement with his surgery. He still has weakness in his leg and some pain that his leg but it is not nearly as bad as prior to his surgery he states. Physical Exam The incision site is clean dry and intact. There is no erythema no drainage. There is no purulence no evidence of infection. His back is clear. There is no active drainage. Abdomen soft and nontender. Chest has good excursion with deep inspiration and expiration. The patient has active and passive range of motion intact at the upper and lower extremities. There is no acute change in neurologic status. He has some weakness with dorsiflexion and significant weakness with plantar flexion on the left. Hospital Course Postoperative day #1 status post laminectomy decompression and discectomy at L5 6 for his disc herniation and left lower extremity radiculopathy and weakness on the left. The patient also has spondylolisthesis L5 6 and L6 S1. The patient has been making good progress postoperatively. He feels his leg has had significant improvement with his surgerystill has some weakness and radicular symptoms which is expected as the nerve needs to heal further over the next several months. They have completed the prophylactic antibiotics without any signs or symptoms of infection. The patient has been able to advance their diet, and is tolerating diet adequately. The pain was initially controlled with IV medications and is now controlled appropriately with oral medications. The patient has been able to increase their mobilization. The patient has progressed appropriately. I think they are in good stable condition for discharge today if he is okay and cleared with his primary service. They will be sent home with appropriate prescriptions. I answered their questions to the best of my ability in a language that they can understand and they are agreeable with the plan. They will follow up as directed in approximately 2 weeks or sooner if he is having any problems. Patient Condition at Discharge: Good Plan - Discharge Summary New Discharge Prescriptions: Cyclobenzaprine [Flexeril] 10 mg PO TID PRN #90 tab PRN Reason: Spasms HYDROcodone/APAP 5-325MG [[place] 5] 1 each PO Q6HR PRN #90 tab PRN Reason: Pain Discharge Medication List HYDROcodone/APAP 5-325MG [[place] 5-325] 1 tab PO Q6HR PRN 09/29/16 [History] Ibuprofen [Motrin] 800 mg PO Q8HR PRN 09/29/16 [History] Omeprazole 40 mg PO QAM 09/29/16 [History] Cyclobenzaprine [Flexeril] 10 mg PO TID PRN #90 tab 10/03/16 [Rx] HYDROcodone/APAP 5-325MG [[place] 5] 1 each PO Q6HR PRN #90 tab 10/03/16 [Rx] Follow up Appointment(s)/Referral(s): Panda Galvez DO [Doctor of Osteopathic Medicine] - 2 Weeks Daryl Medeiros MD [Primary Care Provider] - 1-2 days Activity/Diet/Wound Care/Special Instructions: Keep wound site clean. May shower with waterproof dressing intact, but do not soak in a tub. On Friday May remove dressing at least Steri-Strips intact and allow them to fray off on their own. May ambulate to tolerance. No repetitive bending twisting or lifting. No heavy or rigorous activity.
[2016-10-03] MEDS ORDERED: NON-FORMULARY DRUG (Omeprazole [Omeprazole] 40 MG) PO SCH (09:00)
[2016-10-03 11:57] VITALS: BP 112/65; PULSE 67; TEMP 97.4
--- NOTE | 2016-10-03 13:43 | P.PN ---
Subjective Date of service 10/01/2016 Progress note being dictated for Dr. Diaz. Interval history: This is a 36-year-old gentleman admitted with intractable back pain,disc herniation left L5 L6 level and multiple other medical issues. Evaluated by orthopedics with recommendations noted. Despite pain medication regime and muscle relaxants, continued left lower back pain radiating through hip down left leg,rating pain 8 out of 10at rest; states excruciating with minimal exertion. Scheduled for surgery tomorrow with orthopedics. Denies chest pain, palpitations or increasing shortness of breath. Objective - Vital Signs Vital signs: Vital Signs Temp 98.4 F 10/01/16 14:29 Pulse 66 10/01/16 14:29 Resp 16 10/01/16 14:29 BP 136/70 10/01/16 14:29 Pulse Ox 95 10/01/16 14:29 Intake & Output 09/30/16 10/01/16 10/01/16 18:59 06:59 18:59 Intake Total 360 Balance 360 Intake: Oral 360 Other: # Voids 1 - Exam PHYSICAL EXAM: VITAL SIGNS: As above GENERAL: [Sitting up in bed, no acute distress] HEENT: [Pupils equal conjunctiva normal.] NECK: [Supple, no JVD] RESPIRATORY EFFORT:[Normal] LUNGS: [Essentially clear, bilateral bases diminished] CARDIOVASCULAR[regular S1 and S2, no murmurs, rubs or gallops, no edema] GI: [Abdomen soft, nontender, positive bowel sounds.] PSYCH: [Alert and oriented -3, mood and affect normal.] NEURO: no focal deficits, positive left straight leg raising test-unchanged - Labs CBC & Chem 7: 09/28/16 22:00 09/28/16 22:00 Assessment and Plan Plan: 1. Intractable back pain with radicular pain, disc herniation at L5,L6 level effacing central nerve of this level 2. [obesity, BMI 30.4]. 3. [Gastroesophageal reflux disease Disease]. 4. Degenerative joint disease Plan: Continue on current medication regime , Toradol, Flexeril, [place], Dilaudid monitoring and symptomatic treatment. scheduled for surgery tomorrow with orthopedics orthopedics. Further recommendations to follow. The impression and plan of care has been dictated as directed. : Ludwin performed a H&P examination of this patient and discussed the same with the dictator. I agree with the dictator's note. Any additional findings/opinions/ etc. will be noted.
--- NOTE | 2016-10-03 13:49 | P.PN ---
Subjective Date of service 10/02/2016 Progress note being dictated for Dr. Diaz. Interval history: This is a 36-year-old gentleman admitted with intractable back pain,disc herniation left L5 L6 level and multiple other medical issues. persistent left lower back pain radiating through hip down left leg. Chest x- ray reporting bibasallar atelectasis. Awaiting surgery with orthopedics, today. Denies chest pain, palpitations or increasing shortness of breath. Objective - Vital Signs Vital signs: Vital Signs Temp 97.1 F L 10/02/16 07:32 Pulse 58 L 10/02/16 07:32 Resp 15 10/02/16 07:32 BP 126/66 10/02/16 07:32 Pulse Ox 97 10/02/16 07:32 Intake & Output 10/01/16 10/02/16 10/02/16 18:59 06:59 18:59 Intake Total 360 200 Balance 360 200 Intake: Oral 360 200 Other: Voiding Method Toilet Toilet # Voids 1 1 - Exam PHYSICAL EXAM: VITAL SIGNS: As above GENERAL: [Sitting up in bed, tired appearing] HEENT: [Pupils equal conjunctiva normal.] NECK: [Supple, no JVD] RESPIRATORY EFFORT:[Normal] LUNGS: [Essentially clear, bilateral bases diminished] CARDIOVASCULAR[regular S1 and S2, no murmurs, rubs or gallops, no edema] GI: [Abdomen soft, nontender, positive bowel sounds.] PSYCH: [Alert and oriented -3, mood and affect normal.] NEURO: no focal deficits, positive left straight leg raising test-unchanged - Labs CBC & Chem 7: 09/28/16 22:00 09/28/16 22:00 Assessment and Plan Plan: 1. Intractable back pain with radicular pain, disc herniation at L5,L6 level effacing central nerve of this level 2. [obesity, BMI 30.4]. 3. [Gastroesophageal reflux disease Disease]. 4. Degenerative joint disease 5. Bibasilar atelectasis. Plan: Continue on current medication regime , Toradol, Flexeril, [place], Dilaudid monitoring and symptomatic treatment. continue aggressive pulmonary toileting with incentive spirometer as ordered yesterday.Surgery pending today with orthopedics. Further recommendations to follow. The impression and plan of care has been dictated as directed. : I performed a H&P examination of this patient and discussed the same with the dictator. I agree with the dictator's note. Any additional findings/opinions/ etc. will be noted.
--- NOTE | 2016-10-04 18:08 | P.PN ---
Subjective Date of service 10/03/2016 Discharge summary/PN being dictated for Dr. Diaz. Hospital Course: This is a 36-year-old gentleman admitted with intractable back pain,disc herniation left L5 L6 level and multiple other medical issues. persistent left lower back pain radiating through hip down left leg. MRI correlated with CT reporting large disc herniation left L5 L6 level effacing the central nerve. Underwent laminectomy decompression and discectomy with orthopedics, tolerated well with significant improvement in pain. Patient is postop day #1, doing well. Pain controlled. Denies chest pain, palpitations or increasing shortness of breath. Cleared by orthopedics for discharge. Patient is being discharged home in a stable condition with guarded prognosis. Please refer to discharge plan for discharge meds, follow-up appointments, instructions. Objective - Vital Signs Vital signs: Vital Signs Temp 97.4 F L 10/03/16 08:24 Pulse 67 10/03/16 08:24 Resp 16 10/03/16 08:24 BP 112/65 10/03/16 08:24 Pulse Ox 95 10/03/16 08:24 Intake & Output 10/02/16 10/03/16 10/03/16 18:59 06:59 18:59 Intake Total 1451 Output Total 100 Balance 1351 Weight 113.398 kg Intake: IV 1451 Output: Estimated Blood Loss 100 Other: Voiding Method Toilet Toilet Toilet # Voids 1 - Exam PHYSICAL EXAM: VITAL SIGNS: As above GENERAL: [Sitting up in bed, no acute distress] HEENT: [Pupils equal conjunctiva normal.] NECK: [Supple, no JVD] RESPIRATORY EFFORT:[Normal] LUNGS: [Essentially clear, bilateral bases diminished] CARDIOVASCULAR[regular S1 and S2, no murmurs, rubs or gallops, no edema] GI: [Abdomen soft, nontender, positive bowel sounds.] PSYCH: [Alert and oriented -3, mood and affect normal.] NEURO: no focal deficits, moves all 4 extremities, status post surgery-left lower extremity weakness. - Labs CBC & Chem 7: 09/28/16 22:00 09/28/16 22:00 Assessment and Plan Plan: 1. Intractable back pain with radicular pain, disc herniation at L5,L6 level effacing central nerve. Status post laminectomy, decompression and discectomy. 2. [obesity, BMI 30.4]. 3. [Gastroesophageal reflux disease Disease]. 4. Degenerative joint disease 5. Bibasilar atelectasis. Plan: Please refer to discharge plan for specific instructions, discharge meds and follow-up appointments. She is being discharged home with his in a stable condition with guarded prognosis. The impression and plan of care has been dictated as directed. : I performed a H&P examination of this patient and discussed the same with the dictator. I agree with the dictator's note. Any additional findings/opinions/ etc. will be noted.
== END 2016-10-03 15:30 | disposition home or self-care (01) | DRG 519 ==
LOC: EC 17:12 → 3SUR 22:05 → OBSVTOIN 10-01 12:58
PROVIDERS: ADMIT Hospitalist; ATTEND Internal Medicine
PROC: 0ST20ZZ Resection of Lumbar Vertebral Disc, Open Approach (ICD-10-PCS; principal; 2016-10-01)
PROC: 00NY0ZZ Release Lumbar Spinal Cord, Open Approach (ICD-10-PCS; principal; 2016-10-01)
DX: M51.16 Intervertebral disc disorders with radiculopathy, lumbar region (principal); J98.11 Atelectasis; E66.9 Obesity, unspecified; M43.16 Spondylolisthesis, lumbar region; Z79.1 Long term (current) use of non-steroidal anti-inflammatories (NSAID); Z79.899 Other long term (current) drug therapy; Z87.891 Personal history of nicotine dependence; Z88.5 Allergy status to narcotic agent; Z68.30 Body mass index [BMI] 30.0-30.9, adult; K21.9 Gastro-esophageal reflux disease without esophagitis; M25.78 Osteophyte, vertebrae; M48.06 Spinal stenosis, lumbar region
CPT/HCPCS: 36415; 71010; 72020; 72110; 72131; 72148; 80053; 81003; 85025; 85610; 86850; 86900; 86901; 93005; 96372; 96374; 96375; 96376; 99285

== ENCOUNTER 2016-10-07 02:01 | Emergency (ER) | payer BC ==
[2016-10-07] MEDS ORDERED: RX INFO: IV CONTRAST WAS GIVEN 1 EACH MISC MISCELLANE PRN (02:58)
[2016-10-07] MEDS ORDERED: HYDROmorphone 1 MG/ML 1 ML SYRINGE IVP STA ×2 (02:58→03:58)
[2016-10-07] MEDS ORDERED: SODIUM CHLORIDE 0.9% 1,000 ML IV STA (02:58)
--- NOTE | 2016-10-07 03:01 | ED ---
General Adult HPI - General Chief complaint: Abdominal Pain Stated complaint: back pain post surgery Time Seen by Provider: 10/07/16 02:37 Source: patient, family, RN notes reviewed Mode of arrival: wheelchair Limitations: no limitations - History of Present Illness Initial comments: Patient is a pleasant 36-year-old male presenting to the emergency Department with lower abdominal and back discomfort. Onset was around 6 PM yesterday. Patient did just have back surgery done less than a week ago. No fevers. Patient has discomfort of the lower back as well as the lower abdomen. Patient states it does extend to the upper legs. No fevers at home. Patient became sweaty and triage however that has resolved and patient feels again back however he did prior to arrival. No chest pain. Patient does have a mild headache. No neck pain. - Related Data Previous Rx's Medication Instructions Recorded Cyclobenzaprine [Flexeril] 10 mg PO TID PRN #90 tab 10/03/16 HYDROcodone/APAP 5-325MG [[place] 1 each PO Q6HR PRN #90 tab 10/03/16 5-325] Allergies Allergy/AdvReac Type Severity Reaction Status Date / Time codeine AdvReac constipatio Verified 10/07/16 02:39 n Review of Systems ROS Statement: Those systems with pertinent positive or pertinent negative responses have been documented in the HPI. ROS Other: All systems not noted in ROS Statement are negative. Constitutional: Reports: chills. Denies: fever Eyes: Denies: eye pain ENT: Denies: ear pain Respiratory: Denies: cough, dyspnea Cardiovascular: Denies: chest pain Endocrine: Denies: fatigue Gastrointestinal: Reports: abdominal pain Genitourinary: Denies: dysuria Musculoskeletal: Reports: back pain Skin: Denies: rash Neurological: Reports: headache. Denies: weakness Past Medical History Past Medical History: GERD/Reflux History of Any Multi-Drug Resistant Organisms: None Reported Past Surgical History: Orthopedic Surgery Additional Past Surgical History / Comment(s): giulia knees- "muscles and tendons worked on", Collar bone surgery when broken, and varicose vein sx on left leg. disk sx Past Psychological History: No Psychological Hx Reported Smoking Status: Former smoker Past Alcohol Use History: Occasional Past Drug Use History: None Reported Additional Drug Use History / Comment(s): pt states 3-5 drinks per week - Past Family History Mother Family Medical History: No Reported History General Exam Limitations: no limitations General appearance: alert, in no apparent distress Head exam: Present: atraumatic, normocephalic Eye exam: Present: normal appearance, PERRL, EOMI ENT exam: Present: normal oropharynx Neck exam: Present: normal inspection. Absent: tenderness, meningismus Respiratory exam: Present: normal lung sounds bilaterally Cardiovascular Exam: Present: regular rate, normal rhythm GI/Abdominal exam: Present: soft, tenderness (Moderate tenderness bilateral lower abdomen), normal bowel sounds. Absent: distended, guarding, rebound, rigid Extremities exam: Present: tenderness (Tenderness bilateral thighs, diffusely) Back exam: Present: other (Lumbar incision clean and dry and intact) Neurological exam: Present: alert. Absent: motor sensory deficit Psychiatric exam: Present: normal affect, normal mood Skin exam: Present: normal color. Absent: rash Course Vital Signs 10/07/16 10/07/16 02:21 04:15 Temperature 97.8 F Pulse Rate 75 81 Respiratory 20 16 Rate Blood Pressure 98/65 113/66 O2 Sat by Pulse 98 99 Oximetry EKG Findings - EKG Comments: EKG Findings:: Sinus rhythm at 71. Normal intervals. Normal axis. Normal QRS. No acute ST change. Medical Decision Making - Medical Decision Making Patient reexamined and resting comfortably in bed. Patient feels much better after second dose of pain medication. No leg discomfort. Abdomen is soft with minimal tenderness left lower quadrant. Patient feels much better and comfortable at this time. Case was discussed in detail with Dr. Galvez who is familiar with this patient and recommends discharge and follow-up this week. Patient and family are comfortable with this. - Lab Data Result diagrams: 10/07/16 03:15 10/07/16 03:15 Lab Results 10/07/16 10/07/16 10/07/16 Range/Units 03:15 03:15 03:15 WBC 10.8 H (3.8-10.6) k/uL RBC 4.94 (4.30-5.90) m/uL Hgb 14.8 (13.0-17.5) gm/dL Hct 43.3 (39.0-53.0) % MCV 87.7 (80.0-100.0) fL MCH 30.0 (25.0-35.0) pg MCHC 34.3 (31.0-37.0) g/dL RDW 12.6 (11.5-15.5) % Plt Count 341 (150-450) k/uL Neutrophils % 66 % Lymphocytes % 25 % Monocytes % 6 % Eosinophils % 2 % Basophils % 0 % Neutrophils # 7.1 (1.3-7.7) k/uL Lymphocytes # 2.7 (1.0-4.8) k/uL Monocytes # 0.7 (0-1.0) k/uL Eosinophils # 0.2 (0-0.7) k/uL Basophils # 0.0 (0-0.2) k/uL PT (9.0-12.0) sec INR (<1.1) APTT (22.0-30.0) sec Sodium 140 (137-145) mmol/L Potassium 4.6 (3.5-5.1) mmol/L Chloride 106 (98-107) mmol/L Carbon Dioxide 22 (22-30) mmol/L Anion Gap 12 mmol/L BUN 17 (9-20) mg/dL Creatinine 0.80 (0.66-1.25) mg/dL Est GFR (MDRD) Af Amer >60 (>60 ml/min/1.73 sqM) Est GFR (MDRD) Non-Af >60 (>60 ml/min/1.73 sqM) Glucose 110 H (74-99) mg/dL Calcium 9.7 (8.4-10.2) mg/dL Total Bilirubin 0.5 (0.2-1.3) mg/dL AST 24 (17-59) U/L ALT 44 (21-72) U/L Alkaline Phosphatase 62 (38-126) U/L Total Creatine Kinase 33 L (55-170) U/L CK-MB (CK-2) 0.3 (0.0-2.4) ng/mL CK-MB (CK-2) Rel Index 0.9 Troponin I <0.012 (0.000-0.034) ng/mL Total Protein 6.8 (6.3-8.2) g/dL Albumin 4.1 (3.5-5.0) g/dL Amylase 90 (30-110) U/L Lipase 302 H (23-300) U/L 10/07/16 Range/Units 03:15 WBC (3.8-10.6) k/uL RBC (4.30-5.90) m/uL Hgb (13.0-17.5) gm/dL Hct (39.0-53.0) % MCV (80.0-100.0) fL MCH (25.0-35.0) pg MCHC (31.0-37.0) g/dL RDW (11.5-15.5) % Plt Count (150-450) k/uL Neutrophils % % Lymphocytes % % Monocytes % % Eosinophils % % Basophils % % Neutrophils # (1.3-7.7) k/uL Lymphocytes # (1.0-4.8) k/uL Monocytes # (0-1.0) k/uL Eosinophils # (0-0.7) k/uL Basophils # (0-0.2) k/uL PT 10.4 (9.0-12.0) sec INR 1.0 (<1.1) APTT 22.3 (22.0-30.0) sec Sodium (137-145) mmol/L Potassium (3.5-5.1) mmol/L Chloride (98-107) mmol/L Carbon Dioxide (22-30) mmol/L Anion Gap mmol/L BUN (9-20) mg/dL Creatinine (0.66-1.25) mg/dL Est GFR (MDRD) Af Amer (>60 ml/min/1.73 sqM) Est GFR (MDRD) Non-Af (>60 ml/min/1.73 sqM) Glucose (74-99) mg/dL Calcium (8.4-10.2) mg/dL Total Bilirubin (0.2-1.3) mg/dL AST (17-59) U/L ALT (21-72) U/L Alkaline Phosphatase (38-126) U/L Total Creatine Kinase (55-170) U/L CK-MB (CK-2) (0.0-2.4) ng/mL CK-MB (CK-2) Rel Index Troponin I (0.000-0.034) ng/mL Total Protein (6.3-8.2) g/dL Albumin (3.5-5.0) g/dL Amylase (30-110) U/L Lipase (23-300) U/L - Radiology Data Radiology results: report reviewed (Computed tomography scan of the abdomen and pelvis shows no acute abnormality. Computed tomography scan of the lumbar spine shows postoperative changes, L4-L5 disc herniation and first-degree spondylolisthesis L5-S1.) Disposition Clinical Impression: Postoperative pain Disposition: HOME SELF-CARE Condition: Stable Instructions: Back Pain (ED), Abdominal Pain (ED) Additional Instructions: Please follow-up with Dr. Galvez and Dr. Medeiros this week. Return for fevers, increased pain, weakness, worsening symptoms or other concerns. Referrals: Daryl Medeiros MD [Primary Care Provider] - 1-2 days Panda Galvez DO [Doctor of Osteopathic Medicine] - 1-2 days
[2016-10-07 03:27] LABS: Basophils % (A) 0 %; CHCM 35.4; Eosinophils # (A) 0.2 k/uL (0-0.7); Eosinophils % (A) 2 %; HCT 43.3 % (39.0-53.0); HDW 2.88; HGB 14.8 gm/dL (13.0-17.5); Luc # (Auto) 0.15; Luc % (Auto) 1; Lymphocytes # (A) 2.7 k/uL (1.0-4.8); Lymphocytes % (A) 25 %; MCHC 34.3 g/dL (31.0-37.0); MCV 87.7 fL (80.0-100.0); Mean Platelet Volume 6.9; Monocytes # (A) 0.7 k/uL (0-1.0); Monocytes % (A) 6 %; Neutrophils # (A) 7.1 k/uL (1.3-7.7); Neutrophils % (A) 66 %; RBC 4.94 m/uL (4.30-5.90); RDW 12.6 % (11.5-15.5); WBC 10.8 k/uL (3.8-10.6); WBC (Perox) 10.76
[2016-10-07 03:38] LABS: ALT 44 U/L (21-72); AST 24 U/L (17-59); Alkaline Phosphatase 62 U/L (38-126); Amylase 90 U/L (30-110); Anion Gap 12 mmol/L; Blood Urea Nitrogen 17 mg/dL (9-20); Calcium 9.7 mg/dL (8.4-10.2); Carbon Dioxide 22 mmol/L (22-30); Chloride 106 mmol/L (98-107); Glucose 110 mg/dL (74-99); Non-African American GFR(MDRD) >60 (>60 ml/min/1.73 sqM); Potassium 4.6 mmol/L (3.5-5.1); Sodium 140 mmol/L (137-145); Total Bilirubin 0.5 mg/dL (0.2-1.3); Total Protein 6.8 g/dL (6.3-8.2)
[2016-10-07 03:46] LABS: Partial Thromboplastin Time 22.3 sec (22.0-30.0); Prothrombin Time 10.4 sec (9.0-12.0)
[2016-10-07 03:58] LABS: Creatine Kinase 33 U/L (55-170)
[2016-10-07 04:11] LABS: Creatine Kinase MB 0.3 ng/mL (0.0-2.4); Troponin I <0.012 ng/mL (0.000-0.034)
--- NOTE | 2016-10-07 04:11 | CT ---
EXAMINATION TYPE: CT abdomen pelvis w con DATE OF EXAM: 10/07/2016 3:57 AM COMPARISON: NONE HISTORY: pt is s/p lsp surgery 10/02/16, presents with bilateral leg pain and a squeezing sensation ar ound his waist, [id number] 100ml CT DLP: 1017.80 mGycm Automated exposure control for dose reduction was used. TECHNIQUE: Helical acquisition of images was performed from the lung bases through the pelvis. CONTRAST: Performed without Oral Contrast and with IV Contrast, patient injected with 100 mL of Omnipaque 300. FINDINGS: Lung bases are clear infiltrate. There is no pleural effusion. Heart size is normal. Liver spleen pancreas gallbladder appear normal. Bile ducts are not dilated. There is no adrenal mass . Kidneys show satisfactory contrast opacification. There is no hydronephrosis. Appendix is normal. T here is no retroperitoneal adenopathy. There is no ascites. I see no intestinal wall thickening. Ther e are no dilated loops. Bladder distends smoothly. I see no bony destructive process. There are spond ylotic changes in the lower lumbar spine. IMPRESSION: NEGATIVE CT SCAN OF THE ABDOMEN AND PELVIS. NORMAL APPENDIX.
[2016-10-07 04:15] VITALS: PULSE 81; RESP 16
--- NOTE | 2016-10-07 04:15 | CT ---
EXAMINATION TYPE: CT lumbar spine w con DATE OF EXAM: 10/07/2016 3:57 AM COMPARISON: NONE HISTORY: pt is s/p lsp surgery 10/02/16, presents with bilateral leg pain and a squeezing sensation ar ound his waist, [id number] 100ml CT DLP: 1207.66 mGycm Automated exposure control for dose reduction was used. CONTRAST: CT scan of the lumbar is performed with IV Contrast, patient injected with 100 mL of Omnipaque 300. Enhanced CT of the lumbar spine was performed. Bone and soft tissue window settings are submitted as well as coronal and sagittal reconstructions. There is 5 mm anterior subluxation of L5 in relation S1. There is bilateral L5 spondylolysis. There i s no paraspinal mass. There is degenerative disc space narrowing at L4-5 and L5-S1. There is laminect julienne defect of L4 on the left side. Postsurgical changes with air in the soft tissues at the laminectomy site. There is a posterior moder ate sized central and left-sided lumbar disc herniation into the spinal canal with impingement on the lateral recess on the left side. There is no compression fracture. There is a small posterior disc h erniation at L2-3 and L3-4. Sacroiliac joints appear normal. There is no pathologic enhancement. IMPRESSION: There is moderate posterior Central and left-sided L4-5 disc herniation. Spondylolysis of L5 with fir st-degree L5-S1 spondylolisthesis. L4 laminectomy. I do not see a surgical complicating process.
[2016-10-07 05:50] VITALS: BP 113/63; TEMP 98
== END 2016-10-07 05:50 | disposition home or self-care (01) ==
LOC: EC 02:01
DX: R10.32 Left lower quadrant pain (principal); M54.5 Low back pain; G89.18 Other acute postprocedural pain; M51.26 Other intervertebral disc displacement, lumbar region; M43.16 Spondylolisthesis, lumbar region; R51 Headache; R29.898 Other symptoms and signs involving the musculoskeletal system; K21.9 Gastro-esophageal reflux disease without esophagitis; Z87.891 Personal history of nicotine dependence; Z88.5 Allergy status to narcotic agent; Z98.890 Other specified postprocedural states
CPT/HCPCS: 96374 ×2; 96376 ×2; 96361 ×4; 99284 ×2; 36415; 93005; 80053; 82150; 82550; 82553; 83690; 84484; 85025; 85610; 85730; 87040; 72132; 74177; J1170; Q9967

== ENCOUNTER → 2018-05-07 | Outpatient (CLI) | payer BC ==
--- NOTE | 2018-05-07 08:08 | CT ---
EXAMINATION TYPE: CT sinus wo con DATE OF EXAM: 05/07/2018 COMPARISON: None HISTORY: Difficulty breathing through nose CT DLP: [address] of the paranasal sinuses was performed in the axial and coronal planes. Bone and soft tissue settings are submitted. The paranasal sinuses demonstrate normal aeration and development. There is mucosal thickening noted mild in degree left maxillary sinus greater than right. The remaini ng paranasal sinuses are well aerated. The osteal meatal units are patent bilaterally. The nasal septum is mildly deviated from left to right. No bony destructive changes are seen within the field of view. IMPRESSION: Mild chronic maxillary sinusitis.
== END | disposition home or self-care (01) ==
LOC: RADCTMAIN 06:51
PROVIDERS: ATTEND Otolaryngology
DX: J32.0 Chronic maxillary sinusitis (principal)
CPT/HCPCS: 70486

== ENCOUNTER 2018-09-03 07:15 | Day surgery (SDC) | payer BC ==
[2018-09-01 13:09] VITALS: BMI 31.6
[~2018-09-03 07:15] MED LIST: DEXAMETHASONE SOD PHOSPHATE 10 MG/ML 1 ML VIAL IV ONE; DEXAMETHASONE SOD PHOSPHATE 4 MG/ML 1 ML VIAL IV ONE; FAMOTIDINE 20 MG/2 ML VIAL IV ONE; LACTATED RINGERS 1,000 ML IV SCH; LIDOCAINE 1% 20 ML VIAL (10MG/ML) FOR IV START INTRADERMA PRN; MELOXICAM 7.5 MG TAB PO ONE; MIDAZOLAM 2 MG/2 ML VIAL IV PRN; ONDANSETRON 4 MG/2 ML VIAL IVP ONE; OXYMETAZOLINE 0.05% NASL SPRAY 1 SPRAY BOTTLE NASAL ONE; SCOPOLAMINE 1.5MG/72HR PATCH TRANSDERM ONE; ceFAZolin IN SWFI 2 GM/20 ML SYRINGE IVP ONE
[2018-09-03] MEDS ORDERED: SUCCINYLCHOLINE CHLORIDE VIAL 200 MG/10 ML VIAL IV ONE (08:29)
[2018-09-03] MEDS ORDERED: PROPOFOL 10 MG/ML 20 ML VIAL IV ONE (08:29)
[2018-09-03] MEDS ORDERED: MIDAZOLAM 2 MG/2 ML VIAL ONE (08:29)
[2018-09-03] MEDS ORDERED: fentaNYL (PF) 50 MCG/ML 2 ML AMP ONE (08:29)
[2018-09-03] MEDS ORDERED: LIDOCAINE 1% INJ 10MG/ML (20 ML MDV) ONE (08:29)
[2018-09-03] MEDS ORDERED: ePHEDrine SULFATE/0.9% NACL/PF 50 MG/5 ML SYRINGE IV ONE (08:29)
[2018-09-03] MEDS ORDERED: DEXAMETHASONE SOD PHOS (MDV) 100 MG/10 ML VIAL ONE (08:29)
[2018-09-03] MEDS ORDERED: LIDOCAINE 1%-EPI 1:100,000 20 ML VIAL SQ ONE (09:03)
[2018-09-03] MEDS ORDERED: BUPIVACAIN-EPI 0.5%-1:200,000 30 ML VIAL SQ ONE ×2 (09:04)
[2018-09-03] MEDS ORDERED: FLUORESCEIN STRIPS 1 MG STRIP MISCELLANE ONE (09:04)
[2018-09-03] MEDS ORDERED: EPINEPHrine 1 MG/ML (MDV) 30 ML VIAL TOPICAL ONE (09:04)
[2018-09-03] MEDS ORDERED: BACITRACIN OINT 1 EACH PACKET TOPICAL ONE (09:12)
[2018-09-03 10:01] VITALS: TEMP 97.4
[2018-09-03] MEDS: HYDROmorphone 1 MG/ML 1 ML SYRINGE IVP PRN ×4 (10:04→10:39)
--- NOTE | 2018-09-03 10:08 | P.OP ---
Date of Procedure: 09/03/18 Preoperative Diagnosis: Chronic maxillary ethmoid sinusitis Deviated nasal septum severe Bilateral hypertrophy of nasal turbinates, inferior adenoid hypertrophy Postoperative Diagnosis: Same Procedure(s) Performed: Adenoidectomy Septoplasty Bilateral submucosal resection of the inferior turbinates with outfracturing compression Bilateral functional endoscopic sinus surgery with total ethmoidectomies and maxillary antrostomies Anesthesia: GETA Surgeon: Ray Landin Estimated Blood Loss (ml): 10 Pathology: other (Sinonasal) Condition: stable Disposition: PACU Indications for Procedure: This patient presented to the office with years of bilateral nasal congestion and nasal obstruction area is a chronic mouth breather he has drainage anosmia facial pain and pressure etc. underwent a CAT scan showing chronic maxillary sinusitis with the left side being worse than the right. Adenoids were also found be large and obstructive. Septum is severely deviated and inferior turbinates were large and obstructive. Surgical correction was recommended as the patient has failed antibiotic therapy and cortisone nasal sprays for years. All risks, benefits, and alternative therapies were discussed. Consent was obtained and all questions were answered. Operative Findings: Patient was found to have severe deviated nasal septum to the left with over 90 % occlusion with large obstructive inferior turbinates. There is clear evidence of chronic ethmoid and maxillary sinusitis along with large adenoids were large obstructive. There was evidence of chronic nasopharyngitis. Description of Procedure: This patient was taken to the operative room and placed in the supine position. A general inhalation anesthetic was administered to the patient by the department of anesthesia with a functioning IV line in place. The patient was monitored throughout the entire case by the department of anesthesia. The eyes were taped shut for protection. The patient was placed in a slight reverse Trendelenburg position. The patient had previously utilize Afrin nasal spray preoperatively. The nose was evaluated and the septum lateral nasal wall and inferior turbinates were injected with lidocaine 1% with epinephrine 1 100,000 bilaterally. Approximately 10 minutes were allowed wait for full vasoconstrictive effects to take place. At this point a caudal incision was made over the caudal portion of the left septum down to the mucoperichondrium. A mucoperichondrial flap was elevated on the left side and dissection was carried with use of tunnels posteriorly. We then made a crossover incision through the cartilage to the contralateral side and for the mucoperichondrial flap development was performed to the extent of visualization on the contralateral side. After the cartilage was freed with use of several crosshatching incisions and removal of some redundant strips of septal cartilage, the septum was straightened and placed back in the midline. The septum was sutured fixated to the ovarian groove. Excellent straightening occurred and the septum was visibly straight. Incision was closed with a 40 rapid Vicryl. We utilized a running nonlocking fashion for closure of the incision. A quilting stitch was used to reapproximate the septal flaps with use of a 40 rapid Vicryl. We then entered the nose with a 0 and 30 Dave innoska endoscope. Previous to this we did inject the lateral nasal wall and middle turbinate and uncinate process with lidocaine 1% with epinephrine 1 100,000. Approximately 10 minutes were allowed wait for full vasoconstrictive effects to take place. With use of a microdebrider and a pediatric backbiter, we took down the uncinate process bilaterally. We then opened the maxillary sinuses bilaterally. We utilized a microdebrider for this and entered the maxillary sinuses and removed diseased tissue. This was done bilaterally. After the maxillary sinuses were opened and the diseased tissue was removed we entered the ethmoid bulla and with use of a microdebrider and up-biting boss and Marielle, we followed the fovea frontalis through the basal lamella and into the posterior ethmoid air cells and did a total ethmoidectomy. We removed the anterior ethmoid air cells with use of a microdebrider and up-biting boss. After all the anterior ethmoid air cells were removed we did the same in the posterior ethmoid. A total ethmoidectomy was completed in that fashion with removal of all the anterior and posterior ethmoid air cells and diseased tissue. Ethmoid sinuses were opened totally. Xerogel was inserted and minimal bleeding was encountered. We reinspected the skull base there is no signs of any orbital penetration or signs of any intracranial penetration. The sugical site was reinspected after the xerogel was placed and no bleeding was seen. Intranasal splints were inserted and fixated at the end of the case. We utilized Ramirez nasal splints. There will be removed and the patient returns to the office. Attention was then paid to the inferior turbinates. The bilateral inferior turbinates were hypertrophic and obstructive. We entered the anterior portion of the inferior turbinates with use of a microdebrider. We remove bone and submucosal elements with use of a microdebrider bilaterally. The inferior turbinates underwent a submucosal resection with removal of submucosal tissue and bone. We obtained a much better and normal in size for breathing. The inferior turbinates were then outfractured and compressed with a Refinder by Gnowsis nasal elevator. Excellent airway was obtained and was symmetric bilaterally. No bleeding was encountered. The mouth was opened with use of a McIvor mouth gag. A red rubber catheter was placed through the nose and out the mouth and used to retract the soft palate and secured with a hemostat. With use of a mirror the nasopharynx was evaluated and the adenoids were found be large and obstructive and problematic. With use of suction electrocoagulation, the adenoids were electrofulgurated and then suctioned through the handpiece. The entire adenoid bed was electrofulgurated liquefied and suction and removed. The adenoidectomy was performed and no bleeding was encountered. Patient tolerated this procedure very well. We took care to avoid any trauma to the lips teeth gums and tongue. We also prior to surgery evaluated the soft palate and did not find any evidence of a submucosal cleft area. Patient was taken to postanesthesia recovery in excellent condition.
[2018-09-03 10:44] VITALS: RESP 16
[2018-09-03] MEDS ORDERED: HYDROcodone/APAP 5-325MG 1 EACH TAB PO ONE (11:24)
[2018-09-03 11:55] VITALS: BP 135/74; PULSE 79
== END 2018-09-03 12:06 | disposition home or self-care (01) ==
LOC: OR 07:15
PROVIDERS: ATTEND Otolaryngology
DX: J34.2 Deviated nasal septum (principal); J34.3 Hypertrophy of nasal turbinates; J35.2 Hypertrophy of adenoids; J32.8 Other chronic sinusitis; Z79.899 Other long term (current) drug therapy; Z88.5 Allergy status to narcotic agent
CPT/HCPCS: 30520; 30140; 31267; 31255; 42831; 88305; 88300; J0171; J2250; J0330; J1100 ×2; J2405; J2001; J3010; J1170; J2704; J0690

== ENCOUNTER 2018-10-21 03:04 | Emergency (ER) | payer BC ==
[2018-10-21 03:12] VITALS: BP 144/90; PULSE 66; RESP 17; TEMP 97.9
[2018-10-21] MEDS ORDERED: DEXAMETHASONE SOD PHOSPHATE 10 MG/ML 1 ML VIAL IM STA (03:33)
[2018-10-21] MEDS ORDERED: KETOROLAC 30 MG/ML 1 ML VIAL IM STA ×2 (03:33→04:11)
[2018-10-21] MEDS ORDERED: MORPHINE SULFATE 4 MG/ML SYRINGE IM STA (03:41)
[2018-10-21] MEDS ORDERED: AMOXIC-POT CLAV 875MG STARTER 2 EACH TABLET PO STA (03:41)
--- NOTE | 2018-10-21 03:44 | ED ---
ENT HPI - General Source: patient Mode of arrival: ambulatory Limitations: no limitations <Ashley Blevins - Last Filed: 10/21/18 04:09> <Anthony Dunbar - Last Filed: 10/21/18 09:07> - General Chief complaint: ENT Stated complaint: Swollen throat Time Seen by Provider: 10/21/18 03:21 - History of Present Illness Initial comments: 38-year-old male patient presents to the emergency department today for evaluation of throat swelling and pain. Patient states he develop sore throat on Friday. States he was seen and evaluated at urgent care yesterday and was diagnosed with a throat infection given amoxicillin and steroids. Patient states that he has been taking the medications as directed however today seems that his symptoms are worse. States he is having difficulty swallowing. He denies any difficulty with breathing. He has been taking ibuprofen 800 mg her pain control but doesn't seem to be helping. He is any cough, congestion, fever , or chills with this. States he did have strep testing at the urgent care yesterday which was negative. He denies any unilateral pain or drainage from the throat. Denies any chest pain. Patient denies any recent rash, shortness breath, abdominal pain, nausea, vomiting, diarrhea, constipation, back pain, numbness, tingling, dizziness, weakness, hematuria, dysuria, urinary urgency, urinary frequency, headache, visual changes, or any other complaints. (Ashley Blevins) - Related Data Home Medications Medication Instructions Recorded Confirmed Fish Oil/Dha/Epa [Fish Oil 1,200 3 each PO DAILY 09/01/18 09/01/18 mg Fish Oil] Multivitamins, Thera [Multivitamin 1 tab PO DAILY 09/01/18 09/01/18 (formulary)] Omeprazole 40 mg PO 1200 09/01/18 09/03/18 Amoxic-Pot Clav 875-125Mg 1 tab PO BID 09/03/18 09/03/18 [Augmentin 875-125] Previous Rx's Medication Instructions Recorded Amoxicillin 2 cap PO Q8H #60 capsule 09/03/18 HYDROcodone/APAP 5-325MG [[place] 1 - 2 tab PO Q4-6H PRN 3 Days #36 09/03/18 5-325] tab Meloxicam [Mobic] 15 mg PO DAILY #10 tab 09/03/18 predniSONE 20 mg PO DIRECTED #5 tab 09/03/18 Amoxic-Pot Clav 875-125Mg 1 tab PO Q12HR #20 tablet 10/21/18 [Augmentin 875-125] Allergies Allergy/AdvReac Type Severity Reaction Status Date / Time codeine AdvReac constipatio Verified 10/21/18 03:12 n Review of Systems ROS Other: All systems not noted in ROS Statement are negative. <Ashley Blevins - Last Filed: 10/21/18 04:09> ROS Other: All systems not noted in ROS Statement are negative. <Anthony Dunbar - Last Filed: 10/21/18 09:07> ROS Statement: Those systems with pertinent positive or pertinent negative responses have been documented in the HPI. Past Medical History Past Medical History: GERD/Reflux Additional Past Medical History / Comment(s): varicose veins, nasal congestion History of Any Multi-Drug Resistant Organisms: None Reported Past Surgical History: Adenoidectomy, Back Surgery, Ear Surgery, Orthopedic Surgery Additional Past Surgical History / Comment(s): giulia knee surgery x 2, rt shoulder pins and screws(fx collarbone), rt ear skin graft to ear drum, surgery for varicose veins left leg, nasal surgery Past Anesthesia/Blood Transfusion Reactions: No Reported Reaction Past Psychological History: No Psychological Hx Reported Smoking Status: Former smoker Past Alcohol Use History: Occasional Past Drug Use History: None Reported - Past Family History Mother Family Medical History: No Reported History <Ashley Blevins - Last Filed: 10/21/18 04:09> General Exam Limitations: no limitations General appearance: alert, in no apparent distress, other (This is a well- developed, well-nourished adult male patient in no acute distress. Vital signs upon presentation are temperature 97.9F, pulse 66, respirations 17, blood pressure 144/90, pulse ox 98% on room air.) Eye exam: Present: normal appearance, PERRL, EOMI. Absent: scleral icterus, conjunctival injection, periorbital swelling ENT exam: Present: mucous membranes moist, TM's normal bilaterally. Absent: normal exam, normal oropharynx (Pharyngeal erythema, tonsillar hypertrophy, no tonsillar exudate) Neck exam: Present: normal inspection. Absent: tenderness, meningismus, lymphadenopathy Respiratory exam: Present: normal lung sounds bilaterally. Absent: respiratory distress, wheezes, rales, rhonchi, stridor Cardiovascular Exam: Present: regular rate, normal rhythm, normal heart sounds. Absent: systolic murmur, diastolic murmur, rubs, gallop, clicks GI/Abdominal exam: Present: soft, normal bowel sounds. Absent: distended, tenderness, guarding, rebound, rigid Neurological exam: Present: alert, oriented X3, CN II-XII intact Psychiatric exam: Present: normal affect, normal mood Skin exam: Present: warm, dry, intact, normal color. Absent: rash <Ashley Blevins - Last Filed: 10/21/18 04:09> Vital Signs 10/21/18 03:08 Temperature 97.9 F Pulse Rate 66 Respiratory 17 Rate Blood Pressure 144/90 O2 Sat by Pulse 98 Oximetry Medical Decision Making <Ashley Blevins - Last Filed: 10/21/18 04:09> <Anthony Dunbar - Last Filed: 10/21/18 09:07> - Medical Decision Making 38-year-old male patient presents to the emergency department today for evaluation of facial swelling and pain. Physical examination did reveal pharyngeal erythema, tonsillar hypertrophy. There does not appear to be any drainable abscess at this time. Given patient's continued symptoms we will switch antibiotics to Augmentin. He'll be given an IM dose of Toradol, Decadron , and will be discharged home with pain medication. He has seen Dr. Landin in the past and he is instructed to follow-up with him for recheck as soon as possible. Return parameters were discussed in detail. He verbalizes understanding and agrees with this plan. (Ashley Blevins) I saw this patient in conjunction with the physician assistant research scientist. I performed independent history and physical exam. Agree with case management. (Anthony Dunbar) Disposition Is patient prescribed a controlled substance at d/c from ED?: No Time of Disposition: 03:43 <Ashley Blevins - Last Filed: 10/21/18 04:09> <Anthony Dunbar - Last Filed: 10/21/18 09:07> Clinical Impression: Acute tonsillitis Disposition: HOME SELF-CARE Condition: Good Instructions (If sedation given, give patient instructions): Tonsillitis (ED) Additional Instructions: Take medications as directed. Follow-up with the ears, nose, and throat specialist for further evaluation as soon as possible. Continue your steroids. Stop taking your other antibiotic and start taking the new prescription. Return to the emergency department immediately for any new, worsening, or concerning symptoms. Prescriptions: Amoxic-Pot Clav 875-125Mg [Augmentin 875-125] 1 tab PO Q12HR #20 tablet Referrals: Daryl Medeiros MD [Primary Care Provider] - 1-2 days
[2018-10-21] MEDS ORDERED: ACET/COD 300 MG/30 MG STARTER PACK 6 TAB BTL PO STA (03:45)
[2018-10-21] MEDS ORDERED: ONDANSETRON 4 MG ODT STARTER PACK 2 TAB BTL PO STA (03:45)
[2018-10-21] MEDS ORDERED: traMADol 50 MG STARTER PACK 3 TAB BTL PO STA (03:45)
== END 2018-10-21 04:36 | disposition home or self-care (01) ==
LOC: EC 03:04
DX: J03.90 Acute tonsillitis, unspecified (principal); K21.9 Gastro-esophageal reflux disease without esophagitis; Z90.89 Acquired absence of other organs; Z87.891 Personal history of nicotine dependence; Z79.899 Other long term (current) drug therapy; Z88.5 Allergy status to narcotic agent
CPT/HCPCS: 99283; 96372 ×3; J2270; J1100; J1885; S0119

== ENCOUNTER → 2018-11-09 | Outpatient (CLI) | payer BC ==
--- NOTE | 2018-11-09 08:34 | US ---
EXAMINATION TYPE: US gallbladder DATE OF EXAM: 11/09/2018 COMPARISON: NONE CLINICAL HISTORY: 38-year-old male R10.84 abdominal pain. TECHNIQUE: Multiple sonographic images of the right upper quadrant are obtained. FINDINGS: EXAM MEASUREMENTS: Liver Length: 16.9 cm Gallbladder Wall: 0.3 cm CBD: 0.4 cm Right Kidney: 11.1 x 5.7 x 6.1 cm Pancreas: Obscured by bowel gas Liver: Echogenic and somewhat attenuating in appearance. There are several hypoechoic area, probable focal fatty sparing, largest area measuring 3.0 x 2.9 x 2.7cm, upper limits of normal in size Gallbladder: wnl Evidence for sonographic Escoto's sign: no CBD: wnl Right Kidney: No hydronephrosis. IMPRESSION: 1. Hepatic steatosis with some areas of focal fatty sparing along the gallbladder fossa. Correlate wi th LFTs, lipid profile, and patient risk factors. 2. No cholelithiasis or biliary ductal dilatation.
== END ==
LOC: RADUSWWP 06:53
PROVIDERS: ATTEND Internal Medicine
DX: K76.0 Fatty (change of) liver, not elsewhere classified (principal)
CPT/HCPCS: 76705

== ENCOUNTER → 2019-01-22 | Outpatient (CLI) | payer BC ==
--- NOTE | 2019-01-22 10:14 | NM ---
EXAMINATION TYPE: NM hepatobiliary w EF DATE OF EXAM: 01/22/2019 COMPARISON: NONE HISTORY: R14.0 abdominal distention TECHNIQUE: After the intravenous administration of 4.96 mCi Tc 99m Mebrofenin hepatobiliary scintigra phy is performed. Immediate images post injection. FINDINGS: There is satisfactory initial accumulation of tracer by the liver. The gallbladder is visualized wit hin 16 minutes. The small bowel activity is noted within 10 minutes. At one hour 8 ounces of oral e nsure plus is given to mimic CCK and gallbladder ejection fraction is calculated at 86%. IMPRESSION: Increased ejection fraction may reflect hypercontractile state.
== END | disposition home or self-care (01) ==
LOC: RADNMMAIN 06:50
PROVIDERS: ATTEND Internal Medicine
DX: R14.0 Abdominal distension (gaseous) (principal); R10.9 Unspecified abdominal pain
CPT/HCPCS: 78226; A9537

== ENCOUNTER → 2019-04-02 | Outpatient (CLI) | payer BC ==
--- NOTE | 2019-04-02 10:41 | ECHOF ---
Referral Reason:R01.1 Cardiac murmur, unspecified MEASUREMENTS -------- HEIGHT: 193.0 cm WEIGHT: 120.2 kg BP: 125/60 RVIDd: 3.4 cm (< 3.3) IVSd: 1.6 cm (0.6 - 1.1) LVIDd: 4.9 cm (3.9 - 5.3) LVPWd: 1.8 cm (0.6 - 1.1) IVSs: 1.7 cm LVIDs: 3.0 cm LVPWs: 1.6 cm LAESV Index (A-L): 21.42 ml/m Ao Diam: 3.3 cm (2.0 - 3.7) AV Cusp: 2.8 cm (1.5 - 2.6) LA Diam: 3.5 cm (2.7 - 3.8) MV EXCURSION: 25.445 mm (> 18.000) MV EF SLOPE: 158 mm/s (70 - 150) EPSS: 1.3 cm MV E Sheldon: 0.86 m/s MV DecT: 150 ms MV A Sheldon: 0.58 m/s MV E/A Ratio: 1.48 RAP: 5.00 mmHg RVSP: 18.74 mmHg FINDINGS -------- Sinus rhythm. This was a technically adequate study. The left ventricular size is normal. There is moderate concentric left ventricular hypertrophy. O verall left ventricular systolic function is normal with, an EF between 55 - 60 %. The diastolic fi lling pattern is normal for the age of the patient 6.83. The right ventricle is mildly enlarged. Normal LA size by volume 22+/-6 ml/m2. The right atrial size is normal. Interatrial and interventricular septum intact. The aortic valve is trileaflet and appears structurally normal. There is no evidence of aortic regu rgitation. There is no evidence of aortic stenosis. No mitral regurgitation. Trace tricuspid regurgitation present. There is no evidence of pulmonary hypertension. The right ventricular systolic pressure, as measured by Doppler, is 18.74mmHg. Trace/mild (physiologic) pulmonic regurgitation. The aortic root size is normal. The inferior vena cava is mildly dilated. There is no pericardial effusion. CONCLUSIONS -------- 1. Sinus rhythm. 2. This was a technically adequate study. 3. The left ventricular size is normal. 4. There is moderate concentric left ventricular hypertrophy. 5. Overall left ventricular systolic function is normal with, an EF between 55 - 60 %. 6. The diastolic filling pattern is normal for the age of the patient 6.83 7. The right ventricle is mildly enlarged. 8. Normal LA size by volume 22+/-6 ml/m2. 9. The right atrial size is normal. 10. Interatrial and interventricular septum intact. 11. The aortic valve is trileaflet and appears structurally normal. 12. There is no evidence of aortic regurgitation. 13. There is no evidence of aortic stenosis. 14. No mitral regurgitation. 15. Trace tricuspid regurgitation present. 16. There is no evidence of pulmonary hypertension. 17. The right ventricular systolic pressure, as measured by Doppler, is 18.74mmHg. 18. Trace/mild (physiologic) pulmonic regurgitation. 19. The aortic root size is normal. 20. The inferior vena cava is mildly dilated. 21. There is no pericardial effusion. COUNTER ATTENDANT: Ena Clemens RDCS
== END | disposition home or self-care (01) ==
LOC: RADECHMAIN 08:09
PROVIDERS: ATTEND Internal Medicine
DX: I37.1 Nonrheumatic pulmonary valve insufficiency (principal); I51.7 Cardiomegaly
CPT/HCPCS: 93306

== ENCOUNTER → 2021-07-27 | Day surgery (SDC) | payer BC ==
[2021-07-24 16:52] VITALS: BMI 31.6
[~2021-07-27] MED LIST changes: -DEXAMETHASONE SOD PHOSPHATE 10 MG/ML 1 ML VIAL IV ONE; -DEXAMETHASONE SOD PHOSPHATE 4 MG/ML 1 ML VIAL IV ONE; -FAMOTIDINE 20 MG/2 ML VIAL IV ONE; +LIDOCAINE 1% (10MG/ML) FOR IV START INTRADERMA PRN; -LIDOCAINE 1% 20 ML VIAL (10MG/ML) FOR IV START INTRADERMA PRN; +LIDOCAINE 1% INJ 10MG/ML (20 ML MDV) ONE; -MELOXICAM 7.5 MG TAB PO ONE; -MIDAZOLAM 2 MG/2 ML VIAL IV PRN; -ONDANSETRON 4 MG/2 ML VIAL IVP ONE; -OXYMETAZOLINE 0.05% NASL SPRAY 1 SPRAY BOTTLE NASAL ONE; +PROPOFOL 10 MG/ML 20 ML VIAL IV ONE; -SCOPOLAMINE 1.5MG/72HR PATCH TRANSDERM ONE; -ceFAZolin IN SWFI 2 GM/20 ML SYRINGE IVP ONE
[2021-07-27 09:38] VITALS: RESP 16; TEMP 96.8
--- NOTE | 2021-07-27 11:03 | P.PCN ---
Date of Procedure: 07/27/21 Procedure(s) Performed: Brief history: Patient is a pleasant 41-year-old white female scheduled for an elective upper endoscopy as well as colonoscopy as a part of evaluation of GERD and change in bowel habits. His been having intermittent lower abdominal discomfort, abdominal bloating and diarrhea. Has been on omeprazole 40 mg daily for several years. Procedure performed: Esophagogastroduodenoscopy with biopsy Colonoscopy Preoperative diagnosis: GERD Change in bowel habits Anesthesia: MAC Procedure: After informed consent was obtained from the patient was brought into the endoscopy unit and IV sedation was administered by anesthesia under continuous monitoring. Initially upper endoscopy was done. The Olympus GF 160 video endoscope was inserted inserted into the mouth and esophagus intubated without any difficulty and was gradually advanced into the stomach and duodenum and care fully examined. The bulb and second part of the duodenum appeared normal. Biopsies were done from the duodenum to rule out celiac disease The scope was then withdrawn into the stomach adequately insufflated with air and upon careful examination the antrum and body, cardia and fundus appeared normal. The scope was then withdrawn into the esophagus. The GE junction was located at 40 cm to the incisors. It appeared regular with no erythema erosions or ulcerations. Rest of the esophagus appeared normal. Patient tolerated the procedure well. At this time the patient continued to remain sedation. Initial digital rectal examination was normal. Olympus CF 160 video colonoscope was then inserted into the rectum and gradually advanced to the cecum without any difficulty. Careful examination was performed as the scope was gradually being withdrawn. The prep was excellent. The cecum, ascending colon, transverse colon, descending colon, sigmoid colon and rectum appeared normal. Retroflexion was performed in the rectum and no lesions were noted. Patient tolerated the procedure well. Impression: 1. Upper endoscopy was within normal limits with no evidence of esophagitis or peptic ulcer disease 2. Colonoscopy was within normal limits with no evidence of colitis or colon rectal neoplasia Recommendations: Findings of this examination were discussed with the patient as well as his family. He was advised to follow with the biopsy results. He can have a repeat screening colonoscopy in 10 years. He will continue with omeprazole 20 mg daily and follow antireflux measures.
[2021-07-27 11:32] VITALS: BP 132/70; PULSE 57
== END ==
LOC: ORWHC2ENDO 08:58
PROVIDERS: ATTEND Internal Medicine Gastroenterology
DX: R19.4 Change in bowel habit (principal); R19.7 Diarrhea, unspecified; Z79.899 Other long term (current) drug therapy; F17.210 Nicotine dependence, cigarettes, uncomplicated; Z88.8 Allergy status to other drugs, medicaments and biological substances
CPT/HCPCS: 88305; 45378; 43239; J2001; J2704

== ENCOUNTER 2022-03-06 13:44 | Emergency (ER) | payer BC ==
[2022-03-06 13:49] VITALS: TEMP 98.4
[2022-03-06] MEDS ORDERED: KETOROLAC 15 MG/ML 1 ML VIAL IVP STA (14:40)
[2022-03-06] MEDS ORDERED: SODIUM CHLORIDE 0.9% 500 ML 500 ML IV STA (14:40)
[2022-03-06] MEDS ORDERED: HYDROmorphone 0.5 MG/0.5 ML SYRINGE IVP STA (14:40)
--- NOTE | 2022-03-06 14:46 | ED ---
General Adult HPI - General Chief complaint: Chest Pain Stated complaint: Chest Pain Time Seen by Provider: 03/06/22 13:50 Source: patient, RN notes reviewed, old records reviewed Mode of arrival: ambulatory Limitations: no limitations - History of Present Illness Initial comments: This is a 41-year-old male who presents to the emergency department complaining of left-sided chest pain. Patient states started about 5 days ago. Patient states it hurts with movement of his left arm and taking a deep breath or coughing. Patient denies any injury that he knows of. Patient states he is having no shortness of breath but it hurts take a deep breath. Patient denies any nausea. Patient denies any sweating episodes. Patient denies abdominal pain patient denies any vomiting or diarrhea. Patient denies any recent fever chills or cough. - Related Data Home Medications Medication Instructions Recorded Confirmed Multivitamins, Thera [Multivitamin 1 tab PO HS 09/01/18 03/06/22 (formulary)] Omeprazole [PriLOSEC] 40 mg PO HS 03/06/22 03/06/22 Previous Rx's Medication Instructions Recorded Ibuprofen [Motrin] 600 mg PO Q6HR PRN #20 tab 03/06/22 Allergies Allergy/AdvReac Type Severity Reaction Status Date / Time codeine AdvReac constipatio Verified 03/06/22 15:38 n Review of Systems ROS Statement: Those systems with pertinent positive or pertinent negative responses have been documented in the HPI. ROS Other: All systems not noted in ROS Statement are negative. Past Medical History Past Medical History: GERD/Reflux Additional Past Medical History / Comment(s): varicose veins, History of Any Multi-Drug Resistant Organisms: None Reported Past Surgical History: Adenoidectomy, Back Surgery, Ear Surgery, Orthopedic Surgery Additional Past Surgical History / Comment(s): giulia knee surgery x 2, rt shoulder pins and screws(fx collarbone), rt ear skin graft to ear drum, surgery for varicose veins left leg, nasal surgery, EGD Past Anesthesia/Blood Transfusion Reactions: No Reported Reaction Past Psychological History: No Psychological Hx Reported Smoking Status: Former smoker Past Alcohol Use History: None Reported Past Drug Use History: None Reported - Past Family History Mother Family Medical History: No Reported History General Exam - General Exam Comments Initial Comments: GENERAL: Patient is well-developed and well-nourished. Patient is nontoxic and well- hydrated and is mild distress. ENT: Neck is soft and supple. No significant lymphadenopathy is noted. Oropharynx is clear. Moist mucous membranes. Neck has full range of motion without eliciting any pain. EYES: The sclera were anicteric and conjunctiva were pink and moist. Extraocular movements were intact and pupils were equal round and reactive to light. Eyelids were unremarkable. PULMONARY: Unlabored respirations. Good breath sounds bilaterally. No audible rales rhonchi or wheezing was noted. CARDIOVASCULAR: There is a regular rate and rhythm without any murmurs gallops or rubs. Patient has reproducible chest pain with palpation. ABDOMEN: Soft and nontender with normal bowel sounds. SKIN: Skin is clear with no lesions or rashes and otherwise unremarkable. NEUROLOGIC: Patient is alert and oriented x3. Cranial nerves II through XII are grossly intact. Motor and sensory are also intact. Normal speech, volume and content. Symmetrical smile. MUSCULOSKELETAL: Normal extremities with adequate strength and full range of motion. LYMPHATICS: No significant lymphadenopathy is noted PSYCHIATRIC: Normal psychiatric evaluation. Limitations: no limitations Course Vital Signs 03/06/22 13:46 Temperature 98.4 F Pulse Rate 79 Respiratory 16 Rate Blood Pressure 124/77 O2 Sat by Pulse 97 Oximetry Medical Decision Making - Medical Decision Making EKG shows sinus rhythm at 81 bpm OR interval 276 QRS is 90 QT interval 342 QTC is 379. EKG shows no ST segment elevation however there were Q waves in the inferior leads. Chest x-ray shows no acute abnormality. Patient does have an elevated left sided diaphragm and it was seen in previous chest x-rays. I went back and reevaluated the patient he continued to be tender on palpation and he states this exact same pain he came in for. - Lab Data Result diagrams: 03/06/22 14:43 03/06/22 14:43 Lab Results 03/06/22 03/06/22 03/06/22 Range/Units 14:43 14:43 14:43 WBC 8.0 (3.8-10.6) k/uL RBC 4.88 (4.30-5.90) m/uL Hgb 15.1 (13.0-17.5) gm/dL Hct 45.1 (39.0-53.0) % MCV 92.5 (80.0-100.0) fL MCH 31.0 (25.0-35.0) pg MCHC 33.6 (31.0-37.0) g/dL RDW 13.1 (11.5-15.5) % Plt Count 254 (150-450) k/uL MPV 8.0 Neutrophils % 70 % Lymphocytes % 22 % Monocytes % 5 % Eosinophils % 1 % Basophils % 1 % Neutrophils # 5.6 (1.3-7.7) k/uL Lymphocytes # 1.8 (1.0-4.8) k/uL Monocytes # 0.4 (0-1.0) k/uL Eosinophils # 0.1 (0-0.7) k/uL Basophils # 0.0 (0-0.2) k/uL PT 10.3 (9.0-12.0) sec INR 0.9 (<1.2) APTT 23.9 (22.0-30.0) sec D-Dimer 0.22 (<0.60) mg/L FEU Sodium 138 (137-145) mmol/L Potassium 4.2 (3.5-5.1) mmol/L Chloride 109 H (98-107) mmol/L Carbon Dioxide 24 (22-30) mmol/L Anion Gap 5 mmol/L BUN 12 (9-20) mg/dL Creatinine 0.84 (0.66-1.25) mg/dL Est GFR (CKD-EPI)AfAm >90 (>60 ml/min/1.73 sqM) Est GFR (CKD-EPI)NonAf >90 (>60 ml/min/1.73 sqM) Glucose 97 (74-99) mg/dL Calcium 9.2 (8.4-10.2) mg/dL Magnesium 2.1 (1.6-2.3) mg/dL Total Bilirubin 0.6 (0.2-1.3) mg/dL AST 35 (17-59) U/L ALT 34 (4-49) U/L Alkaline Phosphatase 63 (38-126) U/L Troponin I (0.000-0.034) ng/mL Total Protein 7.3 (6.3-8.2) g/dL Albumin 4.5 (3.5-5.0) g/dL Amylase 68 (30-110) U/L Lipase 122 (23-300) U/L 03/06/22 Range/Units 14:43 WBC (3.8-10.6) k/uL RBC (4.30-5.90) m/uL Hgb (13.0-17.5) gm/dL Hct (39.0-53.0) % MCV (80.0-100.0) fL MCH (25.0-35.0) pg MCHC (31.0-37.0) g/dL RDW (11.5-15.5) % Plt Count (150-450) k/uL MPV Neutrophils % % Lymphocytes % % Monocytes % % Eosinophils % % Basophils % % Neutrophils # (1.3-7.7) k/uL Lymphocytes # (1.0-4.8) k/uL Monocytes # (0-1.0) k/uL Eosinophils # (0-0.7) k/uL Basophils # (0-0.2) k/uL PT (9.0-12.0) sec INR (<1.2) APTT (22.0-30.0) sec D-Dimer (<0.60) mg/L FEU Sodium (137-145) mmol/L Potassium (3.5-5.1) mmol/L Chloride (98-107) mmol/L Carbon Dioxide (22-30) mmol/L Anion Gap mmol/L BUN (9-20) mg/dL Creatinine (0.66-1.25) mg/dL Est GFR (CKD-EPI)AfAm (>60 ml/min/1.73 sqM) Est GFR (CKD-EPI)NonAf (>60 ml/min/1.73 sqM) Glucose (74-99) mg/dL Calcium (8.4-10.2) mg/dL Magnesium (1.6-2.3) mg/dL Total Bilirubin (0.2-1.3) mg/dL AST (17-59) U/L ALT (4-49) U/L Alkaline Phosphatase (38-126) U/L Troponin I <0.012 (0.000-0.034) ng/mL Total Protein (6.3-8.2) g/dL Albumin (3.5-5.0) g/dL Amylase (30-110) U/L Lipase (23-300) U/L Disposition Clinical Impression: Chest wall pain Disposition: HOME SELF-CARE Instructions (If sedation given, give patient instructions): Chest Wall Pain (ED), Chest Pain (ED) Prescriptions: Ibuprofen [Motrin] 600 mg PO Q6HR PRN #20 tab PRN Reason: For pain Is patient prescribed a controlled substance at d/c from ED?: No Referrals: Jarod Guillen DO [Primary Care Provider] - 1-2 days Time of Disposition: 15:55
--- NOTE | 2022-03-06 15:03 | XR ---
EXAMINATION TYPE: XR chest 2V DATE OF EXAM: 03/06/2022 COMPARISON: Chest x-ray October 01, 2016 HISTORY: Upper chest pain for 4 days. TECHNIQUE: Frontal and lateral views of the chest are obtained. FINDINGS: Elevated left hemidiaphragm is redemonstrated. There is no suspicious focal air space opac ity, pleural effusion, or pneumothorax seen. The cardiac silhouette size is stable and within normal limits. The osseous structures are intact. IMPRESSION: No acute process. No significant change from prior.
[2022-03-06 15:04] LABS: ALT 34 U/L (4-49); AST 35 U/L (17-59); African American GFR (CKD) >90 (>60 ml/min/1.73 sqM); Albumin 4.5 g/dL (3.5-5.0); Alkaline Phosphatase 63 U/L (38-126); Amylase 68 U/L (30-110); Anion Gap 5 mmol/L; Blood Urea Nitrogen 12 mg/dL (9-20); Calcium 9.2 mg/dL (8.4-10.2); Carbon Dioxide 24 mmol/L (22-30); Chloride 109 mmol/L (98-107); Glucose 97 mg/dL (74-99); Lipase 122 U/L (23-300); Magnesium 2.1 mg/dL (1.6-2.3); Non-African American GFR(CKD) >90 (>60 ml/min/1.73 sqM); Potassium 4.2 mmol/L (3.5-5.1); Sodium 138 mmol/L (137-145); Total Bilirubin 0.6 mg/dL (0.2-1.3); Total Protein 7.3 g/dL (6.3-8.2)
[2022-03-06 15:09] LABS: Basophils % (A) 1 %; Eosinophils # (A) 0.1 k/uL (0-0.7); Eosinophils % (A) 1 %; HCT 45.1 % (39.0-53.0); HGB 15.1 gm/dL (13.0-17.5); Lymphocytes # (A) 1.8 k/uL (1.0-4.8); Lymphocytes % (A) 22 %; MCHC 33.6 g/dL (31.0-37.0); MCV 92.5 fL (80.0-100.0); Monocytes # (A) 0.4 k/uL (0-1.0); Monocytes % (A) 5 %; Neutrophils # (A) 5.6 k/uL (1.3-7.7); Neutrophils % (A) 70 %; Platelet Count 254 k/uL (150-450); RBC 4.88 m/uL (4.30-5.90); RDW 13.1 % (11.5-15.5)
[2022-03-06 15:10] LABS: INR 0.9 (<1.2); Prothrombin Time 10.3 sec (9.0-12.0)
[2022-03-06 15:11] LABS: Partial Thromboplastin Time 23.9 sec (22.0-30.0)
[2022-03-06 16:20] VITALS: BP 121/84; PULSE 78; RESP 18
== END 2022-03-06 16:20 | disposition home or self-care (01) ==
LOC: EC 13:44
DX: R07.89 Other chest pain (principal); K21.9 Gastro-esophageal reflux disease without esophagitis; Z79.899 Other long term (current) drug therapy; Z88.5 Allergy status to narcotic agent; Z87.891 Personal history of nicotine dependence
CPT/HCPCS: 36415; 93005; 85379; 80053; 82150; 83690; 83735; 84484; 85025; 85610; 85730; 71046; 99285; 96374; 96375; J1885; J1170

== ENCOUNTER 2024-09-20 01:37 | Emergency (ER) | payer BC ==
[2024-09-20 02:07] VITALS: RESP 18; TEMP 97.5
[2024-09-20] MEDS: KETOROLAC 15 MG/ML 1 ML VIAL IVP STA (03:02)
[2024-09-20 03:37] LABS: Appearance,Urine Clear (Clear); Bilirubin,Urine Negative (Negative); Blood,Urine Negative (Negative); Color,Urine Yellow; Glucose,Urine (UA) Negative (Negative); Ketones,Urine Negative (Negative); Leukocyte Esterase,Urine Negative (Negative); Nitrite,Urine Negative (Negative); PH, Urine 5.5 (5.0-8.0); Protein,Urine Trace (Negative); Specific Gravity,Urine 1.031 (1.001-1.035); Urobilinogen,Urine <2.0 mg/dL (<2.0)
[2024-09-20 03:40] LABS: Basophils % (A) 1 %; Eosinophils # (A) 0.2 k/uL (0-0.7); Eosinophils % (A) 3 %; HCT 46.7 % (39.0-53.0); HGB 15.8 gm/dL (13.0-17.5); Lymphocytes % (A) 29 %; MCH 30.9 pg (25.0-35.0); MCHC 33.8 g/dL (31.0-37.0); MCV 91.2 fL (80.0-100.0); Mean Platelet Volume 9.1; Monocytes # (A) 0.6 k/uL (0-1.0); Monocytes % (A) 8 %; Neutrophils # (A) 4.1 k/uL (1.3-7.7); Neutrophils % (A) 58 %; Platelet Count 155 k/uL (150-450); RBC 5.12 m/uL (4.30-5.90); RDW 12.5 % (11.5-15.5); WBC 7.1 k/uL (3.8-10.6)
--- NOTE | 2024-09-20 03:44 | ED ---
Back Pain HPI - General Chief Complaint: Back Pain/Injury Stated Complaint: Leg pain Time Seen by Provider: 09/20/24 02:09 Source: patient - History of Present Illness Initial Comments: 44-year-old male presenting with chief complaint of headache and hip pain. Patient has had a headache since yesterday. Feels like a squeezing pressure sensation. He admits to some mild dizziness. No nausea, vomiting, vision or hearing changes, numbness, tingling, weakness, neck pain. Patient is also having pain in the lower back and bilateral hips which radiates all the way down the legs. He denies any injury or trauma. No loss of bowel or bladder control or saddle paresthesia. No fevers or chills. No chest pain or difficulty breathing. No abdominal pain. - Related Data Home Medications Medication Instructions Recorded Confirmed Multivitamins, Thera [Multivitamin 1 tab PO HS 09/01/18 03/06/22 (formulary)] Omeprazole [PriLOSEC] 40 mg PO HS 03/06/22 03/06/22 Previous Rx's Medication Instructions Recorded Ibuprofen [Motrin] 600 mg PO Q6HR PRN #20 tab 03/06/22 Allergies Allergy/AdvReac Type Severity Reaction Status Date / Time codeine AdvReac constipatio Verified 09/20/24 02:07 n Review of Systems ROS Statement: Those systems with pertinent positive or pertinent negative responses have been documented in the HPI. ROS Other: All systems not noted in ROS Statement are negative. Past Medical History Past Medical History: GERD/Reflux Additional Past Medical History / Comment(s): varicose veins, History of Any Multi-Drug Resistant Organisms: None Reported Past Surgical History: Adenoidectomy, Back Surgery, Ear Surgery, Orthopedic Surgery Additional Past Surgical History / Comment(s): giulia knee surgery x 2, rt shoulder pins and screws(fx collarbone), rt ear skin graft to ear drum, surgery for varicose veins left leg, nasal surgery, EGD Past Anesthesia/Blood Transfusion Reactions: No Reported Reaction Past Psychological History: No Psychological Hx Reported Smoking Status: Former smoker Past Alcohol Use History: None Reported Past Drug Use History: None Reported - Past Family History Mother Family Medical History: No Reported History General Exam Limitations: no limitations General appearance: alert, in no apparent distress Head exam: Present: atraumatic, normocephalic, normal inspection Eye exam: Present: normal appearance, PERRL, EOMI Pupils: Present: normal accommodation Neck exam: Present: normal inspection. Absent: meningismus Respiratory exam: Present: normal lung sounds bilaterally. Absent: respiratory distress, wheezes, rales, rhonchi, stridor Cardiovascular Exam: Present: regular rate, normal rhythm, normal heart sounds. Absent: systolic murmur, diastolic murmur, rubs, gallop, clicks GI/Abdominal exam: Present: soft. Absent: distended, tenderness, guarding, rebound, rigid Extremities exam: Present: normal inspection, full ROM Neurological exam: Present: alert, oriented X3 Expanded Patient oriented to: Present: person, place, time Speech: Present: fluid speech Cranial nerves: EOM's Intact: Normal Cerebellar function: Finger to Nose: Normal, Heel to Andre: Normal Motor strength exam: RUE: 5, LUE: 5, RLE: 5, LLE: 5 Eye Response: (4) open spontaneously Motor Response: (6) obeys commands Verbal Response: (5) oriented Criss Total: 15 Psychiatric exam: Present: normal affect, normal mood Skin exam: Present: warm, dry, normal color Course Vital Signs 09/20/24 09/20/24 02:04 04:33 Temperature 97.5 F L Pulse Rate 68 69 Respiratory 18 18 Rate Blood Pressure 150/79 121/79 O2 Sat by Pulse 97 98 Oximetry Medical Decision Making - Medical Decision Making Was pt. sent in by a medical professional or institution (, PA, BUSINESS OBJECTS, urgent care, hospital, or fci...) When possible be specific @ -No Did you speak to anyone other than the patient for history (EMS, parent, family, police, friend...)? What history was obtained from this source @ -No Did you review nursing and triage notes (agree or disagree)? Why? @ -I reviewed and agree with nursing and triage notes Were old charts reviewed (outside hosp., previous admission, EMS record, old EKG, old radiological studies, urgent care reports/EKG's, fci records)? Report findings @ -No old charts were reviewed Differential Diagnosis (chest pain, altered mental status, abdominal pain women, abdominal pain men, vaginal bleeding, weakness, fever, dyspnea, syncope, headache, dizziness, GI bleed, back pain, seizure, CVA, palpatations, mental health, musculoskeletal)? @ - MDM Differential Back Pain: Strain, zoster, cauda equina syndrome, epidural abscess, vertebral osteomyelitis, discitis, fracture, subluxation, disc herniation, DJD, spinal stenosis, dissection, AAA, pancreatitis, peptic ulcer disease, pyelonephritis, kidney stone this is not meant to be an all-inclusive list. EKG interpreted by me (3pts min.). @ -As above X-rays interpreted by me (1pt min.). @ -No acute findings seen on lumbar spine or hip x-ray CT interpreted by me (1pt min.). @ -None done U/S interpreted by me (1pt. min.). @ -None done What testing was considered but not performed or refused? (CT, X-rays, U/S, labs)? Why? @ -None What meds were considered but not given or refused? Why? @ -None Did you discuss the management of the patient with other professionals (professionals i.e. , PA, BUSINESS OBJECTS, lab, RT, psych nurse, geriatric social worker, propagator laborer, teacher, procurement officer, foster care case manager)? Give summary @ -No Was smoking cessation discussed for >3mins.? @ -No Was critical care preformed (if so, how long)? @ -No Were there social determinants of health that impacted care today? How? (Homelessness, low income, unemployed, alcoholism, drug addiction, transportation, low edu. Level, literacy, decrease access to med. care, nursing home, rehab)? @ -No Was there de-escalation of care discussed even if they declined (Discuss DNR or withdrawal of care, Hospice)? DNR status @ -No What co-morbidities impacted this encounter? (DM, HTN, Smoking, COPD, CAD, Cancer, CVA, ARF, Chemo, Hep., AIDS, mental health diagnosis, sleep apnea, morbid obesity)? @ -None Was patient admitted / discharged? Hospital course, mention meds given and route, prescriptions, significant lab abnormalities, going to OR and other pertinent info. @ -44-year-old male presenting with chief complaint of back and neck pain. No red flag symptoms. History and physical examination are conducted. No acute findings seen on x-ray. No leukocytosis or anemia. Urine shows no infectious process or bleeding. He is positive for RSV. Patient is treated symptomatically and reports improvement in his symptoms. He is resting comfor tably was able to get some sleep. He is educated on today's findings and treatment plan. Follow-up with PCP. Report back to ER with any new or worsening symptoms. Discussed return parameters and answered all questions. Patient conveyed verbal understanding and agreed to the plan. I discussed this case in detail with my attending Dr. Way Undiagnosed new problem with uncertain prognosis? @ -No Drug Therapy requiring intensive monitoring for toxicity (Heparin, Nitro, Insulin, Cardizem)? @ -No Were any procedures done? @ -No Diagnosis/symptom? @ -RSV Acute, or Chronic, or Acute on Chronic? @ -Acute Uncomplicated (without systemic symptoms) or Complicated (systemic symptoms)? @ -Uncomplicated Side effects of treatment? @ -No Exacerbation, Progression, or Severe Exacerbation? @ -No Poses a threat to life or bodily function? How? (Chest pain, USA, LA, pneumonia, PE, COPD, DKA, ARF, appy, cholecystitis, CVA, Diverticulitis, Homicidal, Suicidal, threat to staff... and all critical care pts) @ -Low likelihood - Lab Data Result diagrams: 09/20/24 03:00 09/20/24 03:00 Lab Results 09/20/24 09/20/24 09/20/24 Range/Units 03:00 03:00 03:00 WBC 7.1 (3.8-10.6) k/uL RBC 5.12 (4.30-5.90) m/uL Hgb 15.8 (13.0-17.5) gm/dL Hct 46.7 (39.0-53.0) % MCV 91.2 (80.0-100.0) fL MCH 30.9 (25.0-35.0) pg MCHC 33.8 (31.0-37.0) g/dL RDW 12.5 (11.5-15.5) % Plt Count 155 (150-450) k/uL MPV 9.1 Neutrophils % 58 % Lymphocytes % 29 % Monocytes % 8 % Eosinophils % 3 % Basophils % 1 % Neutrophils # 4.1 (1.3-7.7) k/uL Lymphocytes # 2.0 (1.0-4.8) k/uL Monocytes # 0.6 (0-1.0) k/uL Eosinophils # 0.2 (0-0.7) k/uL Basophils # 0.0 (0-0.2) k/uL Sodium 138 (137-145) mmol/L Potassium 4.8 (3.5-5.1) mmol/L Chloride 107 (98-107) mmol/L Carbon Dioxide 20 L (22-30) mmol/L Anion Gap 11 mmol/L BUN 17 (9-20) mg/dL Creatinine 0.76 (0.66-1.25) mg/dL Est GFR (CKD-EPI)AfAm >90 (>60 ml/min/1.73 sqM) Est GFR (CKD-EPI)NonAf >90 (>60 ml/min/1.73 sqM) Glucose 95 (74-99) mg/dL Plasma Lactic Acid Eagle 1.4 (0.7-2.0) mmol/L Calcium 9.6 (8.4-10.2) mg/dL Total Bilirubin 0.8 (0.2-1.3) mg/dL AST 26 (17-59) U/L ALT 39 (4-49) U/L Alkaline Phosphatase 62 (38-126) U/L Total Protein 7.0 (6.3-8.2) g/dL Albumin 4.4 (3.5-5.0) g/dL Urine Color Urine Appearance (Clear) Urine pH (5.0-8.0) Ur Specific [place] (1.001-1.035) Urine Protein (Negative) Urine Glucose (UA) (Negative) Urine Ketones (Negative) Urine Blood (Negative) Urine Nitrite (Negative) Urine Bilirubin (Negative) Urine Urobilinogen (<2.0) mg/dL Ur Leukocyte Esterase (Negative) Influenza Type A (PCR) (Not Detectd) Influenza Type B (PCR) (Not Detectd) RSV (PCR) (Not Detectd) SARS-CoV-2 (PCR) (Not Detectd) 09/20/24 09/20/24 Range/Units 03:00 03:05 WBC (3.8-10.6) k/uL RBC (4.30-5.90) m/uL Hgb (13.0-17.5) gm/dL Hct (39.0-53.0) % MCV (80.0-100.0) fL MCH (25.0-35.0) pg MCHC (31.0-37.0) g/dL RDW (11.5-15.5) % Plt Count (150-450) k/uL MPV Neutrophils % % Lymphocytes % % Monocytes % % Eosinophils % % Basophils % % Neutrophils # (1.3-7.7) k/uL Lymphocytes # (1.0-4.8) k/uL Monocytes # (0-1.0) k/uL Eosinophils # (0-0.7) k/uL Basophils # (0-0.2) k/uL Sodium (137-145) mmol/L Potassium (3.5-5.1) mmol/L Chloride (98-107) mmol/L Carbon Dioxide (22-30) mmol/L Anion Gap mmol/L BUN (9-20) mg/dL Creatinine (0.66-1.25) mg/dL Est GFR (CKD-EPI)AfAm (>60 ml/min/1.73 sqM) Est GFR (CKD-EPI)NonAf (>60 ml/min/1.73 sqM) Glucose (74-99) mg/dL Plasma Lactic Acid Eagle (0.7-2.0) mmol/L Calcium (8.4-10.2) mg/dL Total Bilirubin (0.2-1.3) mg/dL AST (17-59) U/L ALT (4-49) U/L Alkaline Phosphatase (38-126) U/L Total Protein (6.3-8.2) g/dL Albumin (3.5-5.0) g/dL Urine Color Yellow Urine Appearance Clear (Clear) Urine pH 5.5 (5.0-8.0) Ur Specific [place] 1.031 (1.001-1.035) Urine Protein Trace H (Negative) Urine Glucose (UA) Negative (Negative) Urine Ketones Negative (Negative) Urine Blood Negative (Negative) Urine Nitrite Negative (Negative) Urine Bilirubin Negative (Negative) Urine Urobilinogen <2.0 (<2.0) mg/dL Ur Leukocyte Esterase Negative (Negative) Influenza Type A (PCR) Not Detected (Not Detectd) Influenza Type B (PCR) Not Detected (Not Detectd) RSV (PCR) Detected A (Not Detectd) SARS-CoV-2 (PCR) Not Detected (Not Detectd) Disposition Clinical Impression: RSV (respiratory syncytial virus infection) Disposition: HOME SELF-CARE Condition: Good Instructions (If sedation given, give patient instructions): Respiratory Sy ncytial Virus (ED) Additional Instructions: Follow-up with your PCP. Report back to ER with any new or worsening symptoms. Take Motrin and Tylenol as needed for pain control. Rest and stay well-hydrated Is patient prescribed a controlled substance at d/c from ED?: No Referrals: Jarod Guillen DO [Primary Care Provider] - 1-2 days Time of Disposition: 04:25
[2024-09-20 03:50] LABS: Anion Gap 11 mmol/L; Blood Urea Nitrogen 17 mg/dL (9-20); Carbon Dioxide 20 mmol/L (22-30); Chloride 107 mmol/L (98-107); Glucose 95 mg/dL (74-99); Potassium 4.8 mmol/L (3.5-5.1); Sodium 138 mmol/L (137-145)
[2024-09-20 03:51] LABS: ALT 39 U/L (4-49); AST 26 U/L (17-59); African American GFR (CKD) >90 (>60 ml/min/1.73 sqM); Albumin 4.4 g/dL (3.5-5.0); Alkaline Phosphatase 62 U/L (38-126); Calcium 9.6 mg/dL (8.4-10.2); Non-African American GFR(CKD) >90 (>60 ml/min/1.73 sqM); Total Bilirubin 0.8 mg/dL (0.2-1.3)
--- NOTE | 2024-09-20 04:00 | XR ---
EXAM: XR Lumbosacral Spine, 2 or 3 Views CLINICAL HISTORY: ITS.REASON XR Reason: pain TECHNIQUE: Frontal and lateral views of the lumbar spine and sacrum. COMPARISON: 10/07/2016 FINDINGS: Vertebrae: No acute fracture. Grade 1 anterolisthesis L5 on S1 from bilateral L5 pars defect. Dextroscoliosis. Disc spaces: Moderate disc height loss at L4-5 and L5-S1. Soft tissues: Unremarkable. IMPRESSION: No acute findings.
[2024-09-20] MEDS: ACETAMINOPHEN TAB 500 MG TAB PO STA (04:29)
--- NOTE | 2024-09-20 04:41 | XR ---
EXAM: XR Bilateral Hips With Pelvis When Performed, 4 or More Views CLINICAL HISTORY: ITS.REASON XR Reason: pain TECHNIQUE: Four or more views of the bilateral hips with pelvis when performed. COMPARISON: No relevant prior studies available. FINDINGS: Bones/joints: Unremarkable. No acute fracture. No dislocation. Soft tissues: Unremarkable. IMPRESSION: No acute fracture.
[2024-09-20 05:06] VITALS: BP 121/79; PULSE 69
== END 2024-09-20 04:33 | disposition home or self-care (01) ==
LOC: EC 01:37
DX: B97.4 Respiratory syncytial virus as the cause of diseases classified elsewhere (principal); Z87.891 Personal history of nicotine dependence; Z88.5 Allergy status to narcotic agent
CPT/HCPCS: 36415; 80053; 83605; 85025; 81003; 87636; 72100; 73521; 99284; 96374; J1885